=== PATIENT | male | born 1990 | race American Indian/Alaskan Native ===

== ENCOUNTER 2020-04-20 13:09 | Emergency (ER) | payer MEDICAID ==
--- NOTE | 2020-04-20 14:07 | Emergency Department Report ---
ED General Adult HPI - General Chief complaint: Extremity Injury, Upper Stated complaint: ARM CHECKED P-LINE Time Seen by Provider: 04/20/20 13:59 Source: patient Mode of arrival: Ambulatory Limitations: No Limitations - History of Present Illness Initial comments: Patient is a 29-year-old male who presents emergency room for check of his right forearm fistula. He states he has a history of end-stage renal disease and is on dialysis. He states he last went to dialysis on Saturday04/18/20. He states that he has had a scab present to the forearm for a month. He states that it has been checked twice in [place] and he did not have any evidence of thrombosis or infection. He denies any drainage, fever, vomiting, diarrhea, arm pain, increasing swelling, redness, increased warmth. He states he has an appointment with a vascular surgeon on 04/22/2020. He states that the dialysis center wanted him to have the area evaluated prior to dialysis. He states he does have a history of hypertension and just took his medication right before he came in. - Related Data Previous Rx's Medication Instructions Recorded Last Taken Type Neomycin/Bacitracin/Polymyxinb 1 applicatio TP BID #14 oint...g. 04/20/20 Unknown Rx [Triple Antibiotic Ointment] Sulfamethoxazole/Trimethoprim 1 each PO BID 7 Days #14 tablet 04/20/20 Unknown Rx [Bactrim DS TAB] Allergies Allergy/AdvReac Type Severity Reaction Status Date / Time No Known Allergies Allergy Verified 01/08/15 03:29 ED Review of Systems ROS: Stated complaint: ARM CHECKED P-LINE Other details as noted in HPI Comment: All other systems reviewed and negative ED Past Medical Hx - Past Medical History Previous Medical History?: Yes Hx Hypertension: Yes Hx Renal Disease: Yes Hx HIV: Yes - Surgical History Past Surgical History?: No - Social History Smoking Status: Current Every Day Smoker - Medications Home Medications: Home Medications Medication Instructions Recorded Confirmed Last Taken Type Neomycin/Bacitracin/Polymyxinb 1 applicatio TP BID #14 oint...g. 04/20/20 Unknown Rx [Triple Antibiotic Ointment] Sulfamethoxazole/Trimethoprim 1 each PO BID 7 Days #14 tablet 04/20/20 Unknown Rx [Bactrim DS TAB] ED Physical Exam - General Limitations: No Limitations General appearance: alert, in no apparent distress - Head Head exam: Present: atraumatic, normocephalic - Eye Eye exam: Present: normal appearance - ENT ENT exam: Present: mucous membranes moist - Respiratory Respiratory exam: Absent: respiratory distress, accessory muscle use - Neurological Exam Neurological exam: Present: alert, oriented X3 - Psychiatric Psychiatric exam: Present: normal affect, normal mood - Skin Skin exam: Present: warm, dry, other (1 cm scab/abrasion present to the right forearm, he has an AV fistula in the lower right forearm near the wrist, there is good strong trill, his capillary refill is less than 2 seconds, sensation is intact, no erythema, no increased warmth, no drainage, no fluctuance) ED Course Vital Signs 04/20/20 04/20/20 13:21 14:21 Temperature 98.3 F Pulse Rate 100 H Respiratory 18 Rate Blood Pressure 189/121 Blood Pressure 179/98 [Right] O2 Sat by Pulse 97 Oximetry ED Medical Decision Making - Lab Data Vital Signs 04/20/20 04/20/20 13:21 14:21 Temperature 98.3 F Pulse Rate 100 H Respiratory 18 Rate Blood Pressure 189/121 Blood Pressure 179/98 [Right] O2 Sat by Pulse 97 Oximetry - Medical Decision Making Patient is a 29-year-old male who presents emergency room for check of his right forearm fistula. He states he has a history of end-stage renal disease and is on dialysis. He states he last went to dialysis on Saturday04/18/20. He states that he has had a scab present to the forearm for a month. He states that it has been checked twice in [place] and he did not have any evidence of thrombosis or infection. He denies any drainage, fever, vomiting, diarrhea, arm pain, increasing swelling, redness, increased warmth. He states he has an appointment with a vascular surgeon on 04/22/2020. He states that the dialysis center wanted him to have the area evaluated prior to dialysis. He states he does have a history of hypertension and just took his medication right before he came in. Initial vitals with elevated blood pressure which improved upon repeat. On exam:1 cm scab/abrasion present to the right forearm, he has an AV fistula in the lower right forearm near the wrist, there is good strong trill, his capillary refill is less than 2 seconds, sensation is intact, no erythema, no increased warmth, no drainage, no fluctuance. No signs of significant cellulitis or abscess. Patient is neurovascularly intact. Dr. Hernandez, ER attending evaluated patient and advised to give patient prescription for Bactrim and have patient follow-up with outpatient vascular surgeon. Patient given prescription for Bactrim and triple antibiotic ointment. Advised patient Please use medication as prescribed. Please keep your appointment with your vascular surgeon on 04/22/2020. Return to emergency room immediately for any new or worsening symptoms. Critical care attestation.: If time is entered above; I have spent that time in minutes in the direct care of this critically ill patient, excluding procedure time. ED Disposition Clinical Impression: Abrasion of right forearm Qualifiers: Encounter type: initial encounter Qualified Code(s): S50.811A - Abrasion of right forearm, initial encounter Disposition: TO HOME OR SELFCARE Is pt being admited?: No Does the pt Need Aspirin: No Condition: Stable Instructions: Wound Care, Adult Additional Instructions: Please use medication as prescribed. Please keep your appointment with your vascular surgeon on 04/22/2020. Return to emergency room immediately for any new or worsening symptoms. Prescriptions: Sulfamethoxazole/Trimethoprim [Bactrim DS TAB] 1 each PO BID 7 Days #14 tablet Neomycin/Bacitracin/Polymyxinb [Triple Antibiotic Ointment] 1 applicatio TP BID #14 oint...g. Referrals: PRIMARY CARE, [Primary Care Provider] - 2-3 Days Time of Disposition: 14:07 Print Language: NICARAGUAN
[2020-04-20 14:21] VITALS: BP 179/98
== END 2020-04-20 14:21 | disposition home or self-care (01) ==
LOC: ED 13:09
DX: S50.811A Abrasion of right forearm, initial encounter (principal); I10 Essential (primary) hypertension; Z21 Asymptomatic human immunodeficiency virus [HIV] infection status; F17.200 Nicotine dependence, unspecified, uncomplicated; Z79.899 Other long term (current) drug therapy; X58.XXXA Exposure to other specified factors, initial encounter; Y93.89 Activity, other specified; Y92.89 Other specified places as the place of occurrence of the external cause; Y99.8 Other external cause status
CPT/HCPCS: 99282

== ENCOUNTER 2020-05-13 12:15 | Emergency (ER) | payer MEDICARE ==
[2020-05-13 12:34] VITALS: BP 147/94
--- NOTE | 2020-05-13 13:01 | Emergency Department Report ---
ED Rash HPI - HPI Chief Complaint: Skin Rash Stated Complaint: RASH ON BACK Time Seen by Provider: 05/13/20 12:33 Duration: 2 Days Location: Back, Abdomen Rash Symptoms: Yes Blistering, No Itching, No Facial Swelling, No Tongue/Oral Swelling, No Breathing Difficulties, No Choking Sensation, No Wheezing/Dyspnea, No Peeling, No Fever, No Lightheaded, No Malaise, No Myalgias Severity: moderate Other History: Chief complaint: "I have a rash. I think it is shingles". HPI: This is a 29-year-old male with history of HIV not on ART and hypertension who presents with rash of his lower abdomen and back. Mother thinks that the rash appears like chickenpox. Consequently patient is concerned for shingles. The pain is very intense. Patient has vesicular rash lower back wraps around flank to the right lower quadrant of the abdomen. Patient recently moved back to the [place] area. He is attempting to obtain outpatient medical care for HIV. He denies fever. No chest pain. No shortness of breath. Denies body aches. ED Review of Systems ROS: Stated complaint: RASH ON BACK Other details as noted in HPI Comment: All other systems reviewed and negative Constitutional: denies: fever, malaise Respiratory: denies: cough, shortness of breath Gastrointestinal: denies: abdominal pain, nausea, vomiting Skin: rash, lesions ED Past Medical Hx - Past Medical History Previous Medical History?: Yes Hx Hypertension: Yes Hx Renal Disease: Yes Hx HIV: Yes - Social History Smoking Status: Current Every Day Smoker - Medications Home Medications: Home Medications Medication Instructions Recorded Confirmed Last Taken Type Neomycin/Bacitracin/Polymyxinb 1 applicatio TP BID #14 oint...g. 04/20/20 Unknown Rx [Triple Antibiotic Ointment] Sulfamethoxazole/Trimethoprim 1 each PO BID 7 Days #14 tablet 04/20/20 Unknown Rx [Bactrim DS TAB] Gabapentin 300 mg PO Q8HR #21 capsule 05/13/20 Unknown Rx HYDROcodone/APAP 5-325 [[place] 1 each PO Q4HR PRN #15 tablet 05/13/20 Unknown Rx 5/325] Prednisone [predniSONE 10 mg 10 mg PO .TAPER #1 tab.ds.pk 05/13/20 Unknown Rx (6-Day Pack, 21 Tabs)] Valacyclovir HCl [Valtrex] 1,000 mg PO TID #21 tablet 05/13/20 Unknown Rx Rash Exam - Exam General: Vital signs noted. No distress. Alert and acting appropriately. HEENT: No Periorbital Edema, No Conjuctival Injection, No Chemosis, No Perioral Edema, No Tongue Edema, No Uvular Edema, No Compromised Airway, No Drooling Lungs: Yes Good Air Exchange (Normal Breath Sounds), No Wheezes, No Ronchi, No Stridor, No Cough, No Labored Respirations, No Retractions, No Use of Accessory Muscles, No Other Abnormal Lung Sounds Heart: Yes Regular, No Murmur Skin: No Urticarial Rash, No Maculopapular Rash, No Morbilliform rash, No Excoriations, No Weeping, No Tenderness, No Erythema, No Edema, No Encrustations, No Other (Vesicular rash in dermatomal distribution right lower quadrant wrapping around to right lower back flank) Other: Positive: Abdomen Normal, Neurologic Normal, Musculoskeletal Normal ED Course Vital Signs 05/13/20 12:33 Temperature 99.4 F Pulse Rate 99 H Respiratory 16 Rate Blood Pressure 147/94 [Right] O2 Sat by Pulse 95 Oximetry ED Medical Decision Making - Medical Decision Making Shingles herpes zoster prescribed Valtrex prednisone Neurontin [place] Referred to infectious disease physician and IDP clinic Critical care attestation.: If time is entered above; I have spent that time in minutes in the direct care of this critically ill patient, excluding procedure time. ED Disposition Clinical Impression: Shingles Disposition: DC-01 TO HOME OR SELFCARE Is pt being admited?: No Does the pt Need Aspirin: No Condition: Stable Instructions: Promise, [id number] Additional Instructions: [facility] [address] [place] [address] Prescriptions: Gabapentin 300 mg PO Q8HR #21 capsule HYDROcodone/APAP 5-325 [[place] 5/325] 1 each PO Q4HR PRN #15 tablet PRN Reason: Pain Prednisone [predniSONE 10 mg (6-Day Pack, 21 Tabs)] 10 mg PO .TAPER #1 tab.ds.pk Valacyclovir HCl [Valtrex] 1,000 mg PO TID #21 tablet Referrals: NOA CHRISTIAN MD [Staff Physician] - 3-5 Days
== END 2020-05-13 13:55 | disposition home or self-care (01) ==
LOC: ED 12:15
DX: B02.9 Zoster without complications (principal); I10 Essential (primary) hypertension; F17.200 Nicotine dependence, unspecified, uncomplicated; Z21 Asymptomatic human immunodeficiency virus [HIV] infection status; Z79.899 Other long term (current) drug therapy
CPT/HCPCS: 99282

== ENCOUNTER 2020-10-07 02:54 | Observation (INO) | payer MEDICARE ==
[2020-10-07 03:31] LABS: Basophils % (Auto) 0.2 % (0.0-1.8); Eosinophils % (Auto) 0.3 % (0.0-4.3); Hematocrit 33.5 % (35.5-45.6); Lymphocytes % (Auto) 18.1 % (13.4-35.0); Mean Corpuscular HGB Conc 33 % (32-34); Mean Corpuscular Volume 102 fl (84-94); Monocytes # (Auto) 0.2 K/mm3 (0.0-0.8); Monocytes % (Auto) 3.8 % (0.0-7.3); Platelet Count 148 K/mm3 (140-440); Red Cell Distribution Width 19.4 % (13.2-15.2)
[2020-10-07 03:47] LABS: Albumin 4.9 g/dL (3.9-5)
[2020-10-07] MEDS ORDERED: KETOROLAC 30 MG/1 ML INJ IV ONE (04:34)
[2020-10-07] MEDS ORDERED: ONDANSETRON 4 MG/2 ML INJ IV ONE (04:34)
[2020-10-07] MEDS ORDERED: CALCIUM CHLORIDE 1,000 MG/10 ML SYRINGE IV ONE (04:56)
[2020-10-07] MEDS ORDERED: SODIUM POLYSTYRENE 15 GM/60 ML ORAL LIQD PO ONE (04:56)
[2020-10-07] MEDS ORDERED: SODIUM BICARB 8.4% 50 MEQ/50 ML SYRINGE IV ONE (04:56)
[2020-10-07] MEDS ORDERED: INSULIN REGULAR, HUMAN 100 UNITS/1 ML IV ONE (04:56)
[2020-10-07] MEDS: DEXTROSE 50% IN WATER (25GM) 50 ML SYRINGE IV ONE (05:06)
--- NOTE | 2020-10-07 05:09 | Emergency Department Report ---
ED N/V/D HPI - General Chief complaint: Nausea/Vomiting/Diarrhea Stated complaint: NAUSEA,VOMITING,HIGH BP Time Seen by Provider: 10/07/20 04:21 Source: patient Mode of arrival: Ambulatory Limitations: No Limitations - History of Present Illness Initial comments: Patient is a 29-year-old F [place] male with a past medical history of HIV and end-stage renal disease who is currently on dialysis and his last dialysis session was 2 days ago is presenting with nausea vomiting diarrhea. Patient has diffuse abdominal discomfort. Is been vomiting for the past day. He is unable to keep anything down. [place] pain is crampy in nature and is estimated at 8 out of 10 in severity. Denies any shortness of breath cough fevers chills at this time. States there is no blood in his stool or vomit. MD complaint: nausea, vomiting, diarrhea, abdominal pain - Related Data Previous Rx's Medication Instructions Recorded Last Taken Type Neomycin/Bacitracin/Polymyxinb 1 applicatio TP BID #14 oint...g. 04/20/20 Unknown Rx [Triple Antibiotic Ointment] Sulfamethoxazole/Trimethoprim 1 each PO BID 7 Days #14 tablet 04/20/20 Unknown Rx [Bactrim DS TAB] Gabapentin 300 mg PO Q8HR #21 capsule 05/13/20 Unknown Rx HYDROcodone/APAP 5-325 [[place] 1 each PO Q4HR PRN #15 tablet 05/13/20 Unknown Rx 5/325] Prednisone [predniSONE 10 mg 10 mg PO .TAPER #1 tab.ds.pk 05/13/20 Unknown Rx (6-Day Pack, 21 Tabs)] Valacyclovir HCl [Valtrex] 1,000 mg PO TID #21 tablet 05/13/20 Unknown Rx Allergies Allergy/AdvReac Type Severity Reaction Status Date / Time No Known Allergies Allergy Verified 01/08/15 03:29 ED Review of Systems ROS: Stated complaint: NAUSEA,VOMITING,HIGH BP Other details as noted in HPI Comment: All other systems reviewed and negative ED Past Medical Hx - Past Medical History Previous Medical History?: Yes Hx Hypertension: Yes Hx Renal Disease: Yes Hx HIV: Yes - Surgical History Past Surgical History?: Yes Additional Surgical History: R arm fistula - Social History Smoking Status: Current Every Day Smoker - Medications Home Medications: Home Medications Medication Instructions Recorded Confirmed Last Taken Type Neomycin/Bacitracin/Polymyxinb 1 applicatio TP BID #14 oint...g. 04/20/20 Unknown Rx [Triple Antibiotic Ointment] Sulfamethoxazole/Trimethoprim 1 each PO BID 7 Days #14 tablet 04/20/20 Unknown Rx [Bactrim DS TAB] Gabapentin 300 mg PO Q8HR #21 capsule 05/13/20 Unknown Rx HYDROcodone/APAP 5-325 [[place] 1 each PO Q4HR PRN #15 tablet 05/13/20 Unknown Rx 5/325] Prednisone [predniSONE 10 mg 10 mg PO .TAPER #1 tab.ds.pk 05/13/20 Unknown Rx (6-Day Pack, 21 Tabs)] Valacyclovir HCl [Valtrex] 1,000 mg PO TID #21 tablet 05/13/20 Unknown Rx ED Physical Exam - General Limitations: No Limitations General appearance: alert, other (Ill-appearing but nontoxic) - Head Head exam: Present: atraumatic, normocephalic - Eye Eye exam: Present: normal appearance, PERRL, EOMI - ENT ENT exam: Present: mucous membranes moist - Neck Neck exam: Present: normal inspection - Respiratory Respiratory exam: Present: normal lung sounds bilaterally. Absent: respiratory distress, wheezes, rales, rhonchi - Cardiovascular Cardiovascular Exam: Present: regular rate, normal rhythm, normal heart sounds. Absent: systolic murmur, diastolic murmur, rubs, gallop - GI/Abdominal GI/Abdominal exam: Present: soft, tenderness, normal bowel sounds. Absent: dist ended, guarding, rebound, rigid - Rectal Rectal exam: Present: deferred - Extremities Exam Extremities exam: Present: normal inspection - Back Exam Back exam: Present: normal inspection - Neurological Exam Neurological exam: Present: alert, oriented X3 - Psychiatric Psychiatric exam: Present: normal affect, normal mood - Skin Skin exam: Present: warm, dry, intact, normal color. Absent: rash ED Course Vital Signs 10/07/20 10/07/20 02:58 04:42 Temperature 98.1 F Pulse Rate 103 H 90 Respiratory 19 Rate Blood Pressure 197/139 Blood Pressure 204/137 [Left] O2 Sat by Pulse 100 Oximetry - Reevaluation(s) Reevaluation #1: 10/07/20 05:08 Patient is initial potassium was elevated. Repeated the potassium to ensure that it was not hemolyzed as there was no report. Second potassium was actually slightly higher and laboratory veterinarian states there is no hemolysis. EKG does show some hyperacute T waves. Patient given D50 10 of insulin sodium bicarb and calcium. Nephrology has been called at this time. Patient normally [facility] and [facility] has not been here before for dialysis. ED Medical Decision Making - Lab Data Result diagrams: 10/07/20 03:02 10/07/20 04:06 Lab Results 10/07/20 10/07/20 10/07/20 Range/Units 03:02 03:02 04:06 WBC 5.5 (4.5-11.0) K/mm3 RBC 3.30 L (3.65-5.03) M/mm3 Hgb 11.0 L (11.8-15.2) gm/dl Hct 33.5 L (35.5-45.6) % MCV 102 H (84-94) fl MCH 33 H (28-32) pg MCHC 33 (32-34) % RDW 19.4 H (13.2-15.2) % Plt Count 148 (140-440) K/mm3 Lymph % (Auto) 18.1 (13.4-35.0) % [place] % (Auto) 3.8 (0.0-7.3) % Eos % (Auto) 0.3 (0.0-4.3) % Baso % (Auto) 0.2 (0.0-1.8) % Lymph # (Auto) 1.0 L (1.2-5.4) K/mm3 [place] # (Auto) 0.2 (0.0-0.8) K/mm3 Eos # (Auto) 0.0 (0.0-0.4) K/mm3 Baso # (Auto) 0.0 (0.0-0.1) K/mm3 Seg Neutrophils % 77.6 H (40.0-70.0) % Seg Neutrophils # 4.2 (1.8-7.7) K/mm3 Sodium 139 (137-145) mmol/L Potassium 7.8 H* 8.0 H* (3.6-5.0) mmol/L Chloride 94.9 L (98-107) mmol/L Carbon Dioxide 22 (22-30) mmol/L Anion Gap 30 mmol/L BUN 73 H (9-20) mg/dL Creatinine 18.4 H (0.8-1.3) mg/dL Estimated GFR 4 ml/min BUN/Creatinine Ratio 4 % Glucose 75 (75-100) mg/dL Calcium 11.0 H (8.4-10.2) mg/dL Total Bilirubin 1.30 H (0.1-1.2) mg/dL AST 13 (5-40) units/L ALT 10 (7-56) units/L Alkaline Phosphatase 92 (35-129) units/L Total Protein 7.9 (6.3-8.2) g/dL Albumin 4.9 (3.9-5) g/dL Albumin/Globulin Ratio 1.6 % - EKG Data -: EKG Interpreted by Me - EKG Data 10/07/20 05:47 EKG shows a sinus rhythm rate of 80. [place] is leftward. Was a prolonged SC interval. 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 No peak T waves consistent with hyperkalemia. Time of interpretation is 0455 - Medical Decision Making Patient presented with nausea vomiting diarrhea and some diffuse abdominal discomfort. At the time of admission the official report for the CT of the abdomen pelvis did not resulted however per my interpretation the patient has some ascites. Patient abdomen feeling much improved after Pepcid Zofran and patient has had no further episodes of nausea vomiting. Nephrology Dr. Rosario has been consulted and is ordered dialysis. After the first dose of labetalol her blood pressure did not improve significantly with the. Patient started on a Cardene drip to get his blood pressure down to the level that he is able to receive dialysis. Patient admitted to the hospitalist service. Critical Care Time: Yes (30) Critical care attestation.: If time is entered above; I have spent that time in minutes in the direct care of this critically ill patient, excluding procedure time. ED Disposition Clinical Impression: End-stage renal disease needing dialysis, Hyperkalemia, Gastroenteritis Disposition: OP ADMIT IP TO THIS HOSP Is pt being admited?: Yes Does the pt Need Aspirin: No Condition: Stable Time of Disposition: 05:49
[2020-10-07] MEDS ORDERED: SODIUM CHLORIDE 0.9% 100 ML IV PRN (05:25)
--- NOTE | 2020-10-07 05:30 | Event Note ---
Date: 10/07/20 ESRD with hyperkalemia Presented with nausea and vomiting, no chest pain STAT orders placed for HD, ER to call HD nurse Medical management of hyperkalemia in the interim Discussed that bp is to be less than 180/90 to be placed on HD machine Mali Kyle MD
[2020-10-07] MEDS ORDERED: niCARdipine DRIP 40 MG/200 ML BAG IV ONE (05:41)
[2020-10-07] MEDS ORDERED: ALBUTEROL 2.5 MG/3 ML NEBU IH PRN (06:02)
[2020-10-07] MEDS ORDERED: ONDANSETRON 4 MG/2 ML INJ IV PRN (06:02)
[2020-10-07] MEDS ORDERED: ACETAMINOPHEN 325 MG TAB PO PRN (06:02)
[2020-10-07] MEDS ORDERED: HYDROcodone/ACETAMINOPHEN 5-325 MG TAB PO PRN (06:03)
--- NOTE | 2020-10-07 06:10 | History and Physical Report ---
History of Present Illness Date of examination: 10/07/20 Date of admission: 10/07/20 Chief complaint: Nausea vomiting diarrhea History of present illness: 29 years old male with history of end-stage renal disease on dialysis was brought to the emergency room with nausea vomiting diarrhea for last 2 to 3 days. Patient has diffuse abdominal discomfort. Is been vomiting for the past day. He is unable to keep anything down. Michael pain is crampy in nature and is estimated at 8 out of 10 in severity. Denies any shortness of breath cough fevers chills at this time. States there is no blood in his stool or vomit. In the emergency room patient is found to have potassium of 7.8 BUN of 73 creatinine 18.4 Past History Past Medical History: ESRD, hypertension Medications and Allergies Allergies Allergy/AdvReac Type Severity Reaction Status Date / Time No Known Allergies Allergy Verified 01/08/15 03:29 Home Medications Medication Instructions Recorded Confirmed Last Taken Type Neomycin/Bacitracin/Polymyxinb 1 applicatio TP BID #14 oint...g. 04/20/20 Unknown Rx [Triple Antibiotic Ointment] Sulfamethoxazole/Trimethoprim 1 each PO BID 7 Days #14 tablet 04/20/20 Unknown Rx [Bactrim DS TAB] Gabapentin 300 mg PO Q8HR #21 capsule 05/13/20 Unknown Rx HYDROcodone/APAP 5-325 [[place] 1 each PO Q4HR PRN #15 tablet 05/13/20 Unknown Rx 5/325] Prednisone [predniSONE 10 mg 10 mg PO .TAPER #1 tab.ds.pk 05/13/20 Unknown Rx (6-Day Pack, 21 Tabs)] Valacyclovir HCl [Valtrex] 1,000 mg PO TID #21 tablet 05/13/20 Unknown Rx Active Meds: Active Medications Acetaminophen (Acetaminophen 325 Mg Tab) 650 mg PO Q4H PRN PRN Reason: Pain MILD(1-3)/Fever >100.5/PATEL Hydrocodone Bitart/Acetaminophen (Hydrocodone/Acetaminophen 5-325 Mg Tab) 1 each PO Q4HR PRN PRN Reason: PAIN Albuterol (Albuterol 2.5 Mg/3 Ml Nebu) 2.5 mg IH Q4HRT PRN PRN Reason: Shortness Of Breath Famotidine (Famotidine 20 Mg/2 Ml Inj) 20 mg IV BID DAMIEN Gabapentin (Gabapentin 300 Mg Cap) 300 mg PO Q8HR DAMIEN Heparin Sodium (Porcine) (Heparin 5,000 Unit/1 Ml Vial) 5,000 unit SUB-Q Q8HR DAMIEN Hydralazine HCl (Hydralazine 20 Mg/1 Ml Inj) 10 mg IV Q6H PRN PRN Reason: Blood Pressure Sodium Chloride (Nacl 0.9%) 100 mls @ 999 mls/hr IV CITLALI PRN PRN Reason: Hypotension Nicardipine/Sodium Chloride (Cardene Drip 40 Mg/200 Ml) 40 mg in 200 mls @ 25 mls/hr IV ONCE ONE; Protocol Stop: 10/07/20 13:40 Miscellaneous Medication (Prednisone [Prednisone 10 Mg (6-Day Pack, 21 Tabs)]) 10 mg PO .TAPER DAMIEN Miscellaneous Medication (Valacyclovir Hcl [Valtrex]) 1,000 mg PO TID DAMIEN Neomycin/Polymyxin/Bacitracin (Neomy 3.5 Mg/Bacit 400 Units/Poly B 5000 Units Oint 15 Gm) 1 applic TP BID DAMIEN Ondansetron HCl (Ondansetron 4 Mg/2 Ml Inj) 4 mg IV Q8H PRN PRN Reason: Nausea And Vomiting Sodium Chloride (Sodium Chloride 0.9% 10 Ml Flush Syringe) 10 ml IV BID DAMIEN Sodium Chloride (Sodium Chloride 0.9% 10 Ml Flush Syringe) 10 ml IV PRN PRN PRN Reason: LINE FLUSH Trimethoprim/Sulfamethoxazole (Sulfamethoxazole/Trimethoprim 800/160mg Ds Tab) 1 each PO BID DAMIEN; Protocol Review of Systems Gastrointestinal: abdominal pain, nausea, vomiting, diarrhea Exam - Constitutional Vitals: Temp Pulse Resp BP Pulse Ox 98.1 F 90 19 197/139 100 10/07/20 02:58 10/07/20 04:42 10/07/20 02:58 10/07/20 04:42 10/07/20 02:58 General appearance: Present: no acute distress, well-nourished - EENT Eyes: Present: PERRL ENT: hearing intact, clear oral mucosa - Neck Neck: Present: supple, normal ROM - Respiratory Respiratory effort: normal Respiratory: bilateral: CTA - Cardiovascular Heart Sounds: Present: S1 & S2. Absent: rub, click - Extremities Extremities: pulses symmetrical, No edema Peripheral Pulses: within normal limits - Abdominal General gastrointestinal: Present: soft, non-tender, non-distended, normal bowel sounds Male genitourinary: Present: normal - Integumentary Integumentary: Present: clear, warm, dry - Musculoskeletal Musculoskeletal: gait normal, strength equal bilaterally - Psychiatric Psychiatric: appropriate mood/affect, intact judgment & insight - Neurologic Neurologic: CNII-XII intact, moves all extremities Results - Labs CBC & Chem 7: 10/07/20 03:02 10/07/20 04:06 Labs: Laboratory Last Values WBC 5.5 K/mm3 (4.5-11.0) 10/07/20 03:02 RBC 3.30 M/mm3 (3.65-5.03) L 10/07/20 03:02 Hgb 11.0 gm/dl (11.8-15.2) L 10/07/20 03:02 Hct 33.5 % (35.5-45.6) L 10/07/20 03:02 MCV 102 fl (84-94) H 10/07/20 03:02 MCH 33 pg (28-32) H 10/07/20 03:02 MCHC 33 % (32-34) 10/07/20 03:02 RDW 19.4 % (13.2-15.2) H 10/07/20 03:02 Plt Count 148 K/mm3 (140-440) 10/07/20 03:02 Lymph % (Auto) 18.1 % (13.4-35.0) 10/07/20 03:02 [place] % (Auto) 3.8 % (0.0-7.3) 10/07/20 03:02 Eos % (Auto) 0.3 % (0.0-4.3) 10/07/20 03:02 Baso % (Auto) 0.2 % (0.0-1.8) 10/07/20 03:02 Lymph # (Auto) 1.0 K/mm3 (1.2-5.4) L 10/07/20 03:02 [place] # (Auto) 0.2 K/mm3 (0.0-0.8) 10/07/20 03:02 Eos # (Auto) 0.0 K/mm3 (0.0-0.4) 10/07/20 03:02 Baso # (Auto) 0.0 K/mm3 (0.0-0.1) 10/07/20 03:02 Seg Neutrophils % 77.6 % (40.0-70.0) H 10/07/20 03:02 Seg Neutrophils # 4.2 K/mm3 (1.8-7.7) 10/07/20 03:02 Sodium 139 mmol/L (137-145) 10/07/20 03:02 Potassium 8.0 mmol/L (3.6-5.0) H* 10/07/20 04:06 Chloride 94.9 mmol/L (98-107) L 10/07/20 03:02 Carbon Dioxide 22 mmol/L (22-30) 10/07/20 03:02 Anion Gap 30 mmol/L 10/07/20 03:02 BUN 73 mg/dL (9-20) H 10/07/20 03:02 Creatinine 18.4 mg/dL (0.8-1.3) H 10/07/20 03:02 Estimated GFR 4 ml/min 10/07/20 03:02 BUN/Creatinine Ratio 4 % 10/07/20 03:02 Glucose 75 mg/dL (75-100) 10/07/20 03:02 Calcium 11.0 mg/dL (8.4-10.2) H 10/07/20 03:02 Total Bilirubin 1.30 mg/dL (0.1-1.2) H 10/07/20 03:02 AST 13 units/L (5-40) 10/07/20 03:02 ALT 10 units/L (7-56) 10/07/20 03:02 Alkaline Phosphatase 92 units/L (35-129) 10/07/20 03:02 Total Protein 7.9 g/dL (6.3-8.2) 10/07/20 03:02 Albumin 4.9 g/dL (3.9-5) 10/07/20 03:02 Albumin/Globulin Ratio 1.6 % 10/07/20 03:02 - Imaging and Cardiology CT scan - abdomen: report reviewed Assessment and Plan VTE prophylaxis?: Chemical Plan of care discussed with patient/family: Yes - Patient Problems (1) End-stage renal disease needing dialysis Status: Acute Plan to address problem: Admit the patient to the IMCU. Patient is going for emergent dialysis. Nephrology consulted. Repeat CBC BMP in the morning (2) Hyperkalemia Status: Acute Plan to address problem: Patient already get 10 units of insulin, 1 ampoule of D50 and calcium chloride 1 g IV x1 dose. Will consult nephrology and patient is going for emergent hemodialysis (3) Gastroenteritis Status: Acute Plan to address problem: We will put the patient on Pepcid 20 mg IV every 12 hours and Zofran four million IV every 6 hours As needed. We will recheck CBC BMP in the morning (4) Hypertension Status: Acute Plan to address problem: Patient is on nicardipine drip for high blood pressure. He also continue labetalol 10 mg IV every 6 hours as needed. We will continue the home medication (5) DVT prophylaxis Status: Acute Plan to address problem: Heparin 5000 units subcu every 12 hours for the DVT prophylaxis. Pepcid 20 mg IV every 12 hours for GI prophylaxis. Patient is a full code
[2020-10-07] MEDS ORDERED: NON-FORMULARY EACH (Prednisone [Prednisone 10 Mg (6-Day Pack, 21 Tabs)] 10 MG Tab.Ds.Pk) PO SCH (06:15)
[2020-10-07] MEDS ORDERED: NON-FORMULARY EACH (Valacyclovir Hcl [Valtrex] 1,000 MG Tablet) PO SCH (08:00)
[2020-10-07] MEDS ORDERED: valACYclovir 500 MG TAB PO SCH (10:00)
[2020-10-07] MEDS ORDERED: FAMOTIDINE 20 MG/2 ML INJ IV SCH (10:00)
[2020-10-07] MEDS ORDERED: SULFAMETHOXAZOLE/TRIMETHOPRIM 800/160MG DS TAB PO SCH (10:00)
[2020-10-07] MEDS: FAMOTIDINE 20 MG/2 ML INJ IV SCH (10:06)
[2020-10-07] MEDS: NEOMY 3.5 MG/BACIT 400 UNITS/POLY B 5000 UNITS OINT 15 GM TP SCH ×2 (10:25→21:38)
[2020-10-07 10:42] LABS: Hepatitis B Surface Antigen Non-Reactive (Negative); Hepatitis C Virus Antibody Non-Reactive (NonReactive)
--- NOTE | 2020-10-07 13:33 | Consultation ---
History of Present Illness - Reason for Consult Consult date: 10/07/20 end stage renal disease, hyperkalemia Requesting physician: HLAI BERG - History of Present Illness Patient is a 29-year-old F [place]ian male with a past medical history of HIV and end-stage renal disease who is currently on dialysis and his last dialysis session was 2 days ago is presenting with nausea vomiting diarrhea. Patient has diffuse abdominal discomfort. Is been vomiting for the past day. He is unable to keep anything down. Abdominal pain is crampy in nature and is estimated at 8 out of 10 in severity. Denies any shortness of breath cough fevers chills at this time. States there is no blood in his stool or vomit. Serum potassium was found to be elevated at 7.8 and therefore this urgent consultation. Patient does admit to eating some high potassium foods. He undergoes dialysis at the [facility] on [address] [place]. 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 Patient states that he has not missed any treatments recently. He has just completed his dialysis treatment. Feels much better at this time. Past History Past Medical History: ESRD, hypertension, other (HIV disease) Past Surgical History: Other (History of creation of AV fistula) Social history: no significant social history Family history: no significant family history Medications and Allergies Allergies Allergy/AdvReac Type Severity Reaction Status Date / Time No Known Allergies Allergy Verified 01/08/15 03:29 Home Medications Medication Instructions Recorded Confirmed Last Taken Type Neomycin/Bacitracin/Polymyxinb 1 applicatio TP BID #14 oint...g. 04/20/20 Unknown Rx [Triple Antibiotic Ointment] Sulfamethoxazole/Trimethoprim 1 each PO BID 7 Days #14 tablet 04/20/20 Unknown Rx [Bactrim DS TAB] Gabapentin 300 mg PO Q8HR #21 capsule 05/13/20 Unknown Rx HYDROcodone/APAP 5-325 [[place] 1 each PO Q4HR PRN #15 tablet 05/13/20 Unknown Rx 5/325] Prednisone [predniSONE 10 mg 10 mg PO .TAPER #1 tab.ds.pk 05/13/20 Unknown Rx (6-Day Pack, 21 Tabs)] Valacyclovir HCl [Valtrex] 1,000 mg PO TID #21 tablet 05/13/20 Unknown Rx Active Meds: Active Medications Acetaminophen (Acetaminophen 325 Mg Tab) 650 mg PO Q4H PRN PRN Reason: Pain MILD(1-3)/Fever >100.5/PATEL Hydrocodone Bitart/Acetaminophen (Hydrocodone/Acetaminophen 5-325 Mg Tab) 1 each PO Q4HR PRN PRN Reason: Pain, Moderate (4-6) Albuterol (Albuterol 2.5 Mg/3 Ml Nebu) 2.5 mg IH Q4HRT PRN PRN Reason: Shortness Of Breath Famotidine (Famotidine 20 Mg/2 Ml Inj) 20 mg IV DAILY [facility] Last Admin: 10/07/20 10:06 Dose: 20 mg Documented by: Gabapentin (Gabapentin 300 Mg Cap) 300 mg PO Q8HR [facility] Heparin Sodium (Porcine) (Heparin 5,000 Unit/1 Ml Vial) 5,000 unit SUB-Q Q8HR DAMIEN Hydralazine HCl (Hydralazine 20 Mg/1 Ml Inj) 10 mg IV Q6H PRN PRN Reason: SBP >/=160; DBP >/=100 Sodium Chloride (Nacl 0.9%) 100 mls @ 999 mls/hr IV CITLALI PRN PRN Reason: Hypotension Nicardipine/Sodium Chloride (Cardene Drip 40 Mg/200 Ml) 40 mg in 200 mls @ 25 mls/hr IV ONCE ONE; Protocol Stop: 10/07/20 13:40 Last Admin: 10/07/20 06:09 Dose: 5 mg/hr, 25 mls/hr Documented by: Neomycin/Polymyxin/Bacitracin (Neomy 3.5 Mg/Bacit 400 Units/Poly B 5000 Units Oint 15 Gm) 1 applic TP BID [facility] Ondansetron HCl (Ondansetron 4 Mg/2 Ml Inj) 4 mg IV Q8H PRN PRN Reason: Nausea And Vomiting Sodium Chloride (Sodium Chloride 0.9% 10 Ml Flush Syringe) 10 ml IV BID [facility] Last Admin: 10/07/20 10:06 Dose: 10 ml Documented by: Sodium Chloride (Sodium Chloride 0.9% 10 Ml Flush Syringe) 10 ml IV PRN PRN PRN Reason: LINE FLUSH Review of Systems All systems: negative (Except as noted above) Exam - Vital Signs Vital signs: Vital Signs Temp Pulse Resp BP Pulse Ox 98.1 F 103 H 19 204/137 100 10/07/20 02:58 10/07/20 02:58 10/07/20 02:58 10/07/20 02:58 10/07/20 02:58 - General Appearance General appearance: well-developed, well-nourished, appears stated age EENT: PERRL, mucous membranes moist Neck: Present: neck supple, trachea midline. Absent: JVD/HJR, Masses Respiratory: Clear to Ascultation Heart: regular, normal heart rate Gastrointestinal: Present: normal, normoactive bowel sounds Integumentary: no rash, other (No edema. AV fistula right forearm. Good bruit and thrill.) Results - Lab Results 10/07/20 03:02 10/07/20 04:06 Most recent lab results Calcium 11.0 mg/dL (8.4-10.2) H 10/07/20 03:02 Assessment and Plan Impression * End-stage renal disease on maintenance hemodialysis. * Severe hyperkalemia * Hypertension * HIV disease * Anemia Recommendations * Patient completed his dialysis approximately 30 to 45 minutes ago. He feels much better at this time * Shall recheck a potassium. If still elevated would manage him medically * Recheck his chemistries again tomorrow. He will most likely need additional dialysis treatment tomorrow * Adjust diet and meds for ESRD state * Avoid nephrotoxins * Monitor fluid status and electrolytes closely * Patient advised regarding dietary potassium restriction * No IV, BP or venipuncture in his access arm * Thank you very much for the consultation. Shall follow along with you
[2020-10-07] MEDS: GABAPENTIN 300 MG CAP PO SCH ×2 (13:44→21:31)
[2020-10-07] MEDS: HEPARIN 5,000 UNIT/1 ML VIAL SUB-Q SCH ×2 (14:43→21:32)
--- NOTE | 2020-10-07 15:25 | Event Note ---
Date: 10/07/20 Patient seen and examined, completing dialysis. Patient states that he is feeling better. Continue dialysis per nephrology recommendations, anticipate possible dialysis tomorrow, recheck potassium. Anticipate discharge in the next 48 hours.
[2020-10-07] MEDS: hydrALAZINE 20 MG/1 ML INJ IV PRN (21:53)
[2020-10-08] MEDS: hydrALAZINE 20 MG/1 ML INJ IV PRN ×2 (04:10→13:00)
[2020-10-08] MEDS: GABAPENTIN 300 MG CAP PO SCH ×3 (05:26→21:10)
[2020-10-08] MEDS: HEPARIN 5,000 UNIT/1 ML VIAL SUB-Q SCH ×3 (05:26→21:10)
[2020-10-08 08:20] LABS: Basophils % (Auto) 0.6 % (0.0-1.8); Eosinophils # (Auto) 0.1 K/mm3 (0.0-0.4); Eosinophils % (Auto) 2.8 % (0.0-4.3); Hematocrit 33.7 % (35.5-45.6); Hemoglobin 11.3 gm/dl (11.8-15.2); Lymphocytes # (Auto) 1.2 K/mm3 (1.2-5.4); Lymphocytes % (Auto) 26.8 % (13.4-35.0); Mean Corpuscular HGB Conc 33 % (32-34); Mean Corpuscular Volume 101 fl (84-94); Monocytes # (Auto) 0.2 K/mm3 (0.0-0.8); Monocytes % (Auto) 3.9 % (0.0-7.3); Platelet Count 150 K/mm3 (140-440); Red Blood Count 3.35 M/mm3 (3.65-5.03); Red Cell Distribution Width 19.4 % (13.2-15.2)
[2020-10-08 08:37] LABS: Calcium 9.9 mg/dL (8.4-10.2)
--- NOTE | 2020-10-08 09:48 | Electrocardiograph Report ---
[facility] Test Date: 2020-10-07 Test Time: 04:51:29 Pat Name: TEOFILO CISNEROS Department: Room: A267 1 Gender: M Acting Instructor: JAVY : 1990 Requested By: HALI BERG Order Number: [id number] Reading MD: Sebastien Bowman Measurements Intervals [place] Rate: 80 P: 50 NV: 249 QRS: -70 QRSD: 151 T: 72 QT: 467 QTc: 540 Interpretive Statements Sinus rhythm Prolonged NV interval Left atrial enlargement RBBB and LAFB Abnrm T, consider ischemia, anterolateral lds No previous ECG available for comparison Electronically Signed On 10-08-2020 9:47:48 EDT by Sebastien Bowman
[2020-10-08] MEDS ORDERED: NON-FORMULARY EACH (Dolutegravir/Rilpivirine [Juluca 50-25 Mg Tablet] 1 EACH Tablet) PO SCH (10:00)
[2020-10-08] MEDS ORDERED: NON-FORMULARY EACH (Nifedipine Er 60 MG) PO SCH (10:00)
[2020-10-08] MEDS ORDERED: NIFEdipine XL 60 MG TAB PO SCH ×2 (10:00→22:00)
--- NOTE | 2020-10-08 11:29 | Progress Note ---
Assessment and Plan Impression * End-stage renal disease on maintenance hemodialysis. * Severe hyperkalemia * Hypertension * HIV disease * Anemia Recommendations * Patient had uneventful hemodialysis yesterday. Hyperkalemia was corrected * Serum potassium has gone up to 6.2 again this morning. Patient getting additional dialysis treatment today. * Adjust diet and meds for ESRD state * Avoid nephrotoxins * Monitor fluid status and electrolytes closely * Patient advised regarding dietary potassium restriction * No IV, BP or venipuncture in his access arm * Patient did have prolonged bleeding from his AV fistula after dialysis yesterday. He will also need his access to be evaluated. He does not recall the name of his vascular surgeon Subjective Date of service: 10/08/20 Interval history: Patient feels better this morning. Denies any shortness of breath. Nausea and vomiting is also better. Dialysis being initiated Objective - Vital Signs Vital signs: Vital Signs - 12hr 10/07/20 10/08/20 10/08/20 23:38 00:00 00:25 Temperature 99.2 F Pulse Rate 94 H 96 H Pulse Rate [ 94 H From Monitor] Respiratory 29 H Rate Blood Pressure 163/114 167/115 O2 Sat by Pulse 91 Oximetry 10/08/20 10/08/20 10/08/20 01:00 02:00 03:00 Temperature Pulse Rate 90 83 84 Pulse Rate [ From Monitor] Respiratory 34 H 30 H 29 H Rate Blood Pressure 157/107 157/107 147/99 O2 Sat by Pulse 93 96 92 Oximetry 10/08/20 10/08/20 10/08/20 04:00 04:10 04:20 Temperature 99 F Pulse Rate 92 H 86 91 H Pulse Rate [ 92 H From Monitor] Respiratory 18 Rate Blood Pressure 161/112 161/112 O2 Sat by Pulse 90 Oximetry 10/08/20 10/08/20 10/08/20 05:00 06:00 07:00 Temperature Pulse Rate 94 H 96 H 96 H Pulse Rate [ From Monitor] Respiratory 29 H 30 H 32 H Rate Blood Pressure 151/102 157/108 171/111 O2 Sat by Pulse 94 94 100 Oximetry 10/08/20 10/08/20 10/08/20 07:28 07:59 08:00 Temperature 98 F Pulse Rate 103 H 97 H 96 H Pulse Rate [ 97 H From Monitor] Respiratory 13 Rate Blood Pressure 174/112 176/122 O2 Sat by Pulse 96 Oximetry 10/08/20 10/08/20 10/08/20 08:05 09:00 10:00 Temperature Pulse Rate 93 H 94 H Pulse Rate [ From Monitor] Respiratory 25 H 21 Rate Blood Pressure 158/113 163/113 O2 Sat by Pulse 97 96 94 Oximetry - General Appearance General appearance: well-developed, well-nourished, appears stated age EENT: PERRL, mucous membranes moist Neck: no JVD, no thyromegaly, no carotid bruit, supple Respiratory: Present: Clear to Ascultation Cardiology: regular, normal heart rate, S1S2, no murmurs Gastrointestinal: normal, normoactive bowel sounds Integumentary: no rash, other (No edema. AV fistula cannulated) - Lab 10/08/20 07:51 10/08/20 07:51 Most recent lab results Calcium 9.9 mg/dL (8.4-10.2) 10/08/20 07:51 Medications & Allergies - Medications Allergies/Adverse Reactions: Allergies No Known Allergies Allergy (Verified 10/08/20 07:57) Home Medications: Home Medications Medication Instructions Recorded Confirmed Last Taken Type Dolutegravir/Rilpivirine [[place] 1 tab PO DAILY 10/07/20 10/07/20 Unknown History 50-25 mg Tablet] Nifedipine ER 60 mg DAILY 10/07/20 10/07/20 Unknown History labetaloL [Labetalol 200mg TAB] 200 mg PO BID 10/07/20 10/07/20 Unknown History Active Medications: Generic Name Dose Route Start Last Admin Trade Name Freq PRN Reason Stop Dose Admin Acetaminophen 650 mg 10/07/20 06:02 Acetaminophen 325 Mg Tab PO Q4H PRN Pain MILD(1-3)/Fever >100.5/PATEL Hydrocodone Bitart/Acetaminophen 1 each 10/07/20 06:03 Hydrocodone/Acetaminophen 5-325 Mg Tab PO Q4HR PRN Pain, Moderate (4-6) Albuterol 2.5 mg 10/07/20 06:02 Albuterol 2.5 Mg/3 Ml Nebu IH Q4HRT PRN Shortness Of Breath Famotidine 20 mg 10/07/20 10:00 10/07/20 10:06 Famotidine 20 Mg/2 Ml Inj IV 20 mg DAILY DAMIEN Administration Gabapentin 300 mg 10/07/20 14:00 10/08/20 05:26 Gabapentin 300 Mg Cap PO 300 mg Q8HR DAMIEN Administration Heparin Sodium (Porcine) 5,000 unit 10/07/20 14:00 10/08/20 05:26 Heparin 5,000 Unit/1 Ml Vial SUB-Q 5,000 unit Q8HR DAMIEN Administration Hydralazine HCl 10 mg 10/07/20 06:04 10/08/20 04:10 Hydralazine 20 Mg/1 Ml Inj IV 10 mg Q6H PRN Administration SBP >/=160; DBP >/=100 Sodium Chloride 100 mls @ 999 mls/hr 10/07/20 05:25 Nacl 0.9% IV CITLALI PRN Hypotension Labetalol HCl 20 mg 10/07/20 18:00 10/08/20 07:28 Labetalol 20 Mg/4 Ml Inj IV 20 mg Q4HR PRN Administration Blood Pressure Labetalol HCl 200 mg 10/07/20 22:00 10/07/20 21:32 Labetalol 200 Mg Tab PO 200 mg BID DAMIEN Administration Miscellaneous Medication 1 each 10/08/20 10:00 Dolutegravir/Rilpivirine [[place] 50-25 Mg Tablet] PO DAILY DAMIEN Neomycin/Polymyxin/Bacitracin 1 applic 10/07/20 10:00 10/07/20 21:38 Neomy 3.5 Mg/Bacit 400 Units/Poly B 5000 Units Oint 15 Gm TP Not Given BID [facility] Nifedipine 60 mg 10/08/20 10:00 Nifedipine Xl 60 Mg Tab PO QDAY DAMIEN Ondansetron HCl 4 mg 10/07/20 06:02 Ondansetron 4 Mg/2 Ml Inj IV Q8H PRN Nausea And Vomiting Sodium Chloride 10 ml 10/07/20 10:00 10/07/20 21:38 Sodium Chloride 0.9% 10 Ml Flush Syringe IV 10 ml BID DAMIEN Administration Sodium Chloride 10 ml 10/07/20 06:02 Sodium Chloride 0.9% 10 Ml Flush Syringe IV PRN PRN LINE FLUSH
--- NOTE | 2020-10-08 13:26 | Progress Note ---
Assessment and Plan Assessment and plan: 29-year-old -Swedish male with past medical history of end-stage renal disease, HIV, hypertension who presents with hyperkalemia - Patient Problems End-stage renal disease needing dialysis Status: Acute Plan to address problem: Nephrology consulted Nephrology managing hemodialysis Hyperkalemia Status: Acute Plan to address problem: Patient already get 10 units of insulin, 1 ampoule of D50 and calcium chloride 1 g IV x1 dose. . Resolved hyperkalemia with hemodialysis Gastroenteritis Status: Acute Plan to address problem: Pepcid 20 mg twice daily Hypertension Status: Acute Plan to address problem: Continue labetalol 200 mg twice daily Continue nifedipine, increase 60 mg twice daily HIV infection - continue HIV medication DVT prophylaxis Status: Acute Plan to address problem: Heparin 5000 units subcu every 12 hours for the DVT prophylaxis. Pepcid 20 mg IV every 12 hours for GI prophylaxis. Disposition: Continue treatment for hypertension, hyperkalemia, and end-stage renal disease. History Interval history: 10/08/20 pt seen in dialysis, K+ is increased, BP increased, felt nauseated, didn't take medication for bp Hospitalist Physical - Physical exam Narrative exam: General appearance: no acute distress, well-nourished EENT: PERRL, EOM intact, hearing intact, clear oral mucosa Neck: Present: supple, normal ROM Respiratory: bilateral CTA, negative: rales, rhonchi, wheezing Cardiovascular: Regular rate/rhythm, Normal S1 & S2. No gallop, rub Extremities: A/V fistula in left arm, no ischemia, No edema, normal temperature, normal color, Full ROM Abdominal: soft, no tenderness, non-distended, normal bowel sounds Integumentary: Present: clear, warm, dry no wounds, no erythema noted Psychiatric: appropriate mood/affect, intact judgment & insight Neurologic: CNII-XII intact, moves all extremities, no sensory or motor abnormalities - Constitutional Vitals: Temp Pulse Resp BP Pulse Ox 97.9 F 102 H 18 186/120 94 10/08/20 10:30 10/08/20 12:30 10/08/20 10:30 10/08/20 12:30 10/08/20 10:00 Results - Labs CBC & Chem 7: 10/08/20 07:51 10/08/20 07:51 Labs: Laboratory Last Values WBC 4.4 K/mm3 (4.5-11.0) L 10/08/20 07:51 RBC 3.35 M/mm3 (3.65-5.03) L 10/08/20 07:51 Hgb 11.3 gm/dl (11.8-15.2) L 10/08/20 07:51 Hct 33.7 % (35.5-45.6) L 10/08/20 07:51 MCV 101 fl (84-94) H 10/08/20 07:51 MCH 34 pg (28-32) H 10/08/20 07:51 MCHC 33 % (32-34) 10/08/20 07:51 RDW 19.4 % (13.2-15.2) H 10/08/20 07:51 Plt Count 150 K/mm3 (140-440) 10/08/20 07:51 Lymph % (Auto) 26.8 % (13.4-35.0) 10/08/20 07:51 [place] % (Auto) 3.9 % (0.0-7.3) 10/08/20 07:51 Eos % (Auto) 2.8 % (0.0-4.3) 10/08/20 07:51 Baso % (Auto) 0.6 % (0.0-1.8) 10/08/20 07:51 Lymph # (Auto) 1.2 K/mm3 (1.2-5.4) 10/08/20 07:51 [place] # (Auto) 0.2 K/mm3 (0.0-0.8) 10/08/20 07:51 Eos # (Auto) 0.1 K/mm3 (0.0-0.4) 10/08/20 07:51 Baso # (Auto) 0.0 K/mm3 (0.0-0.1) 10/08/20 07:51 Seg Neutrophils % 65.9 % (40.0-70.0) 10/08/20 07:51 Seg Neutrophils # 2.9 K/mm3 (1.8-7.7) 10/08/20 07:51 Sodium 139 mmol/L (137-145) 10/08/20 07:51 Potassium 6.2 mmol/L (3.6-5.0) H* D 10/08/20 07:51 Chloride 96.7 mmol/L (98-107) L 10/08/20 07:51 Carbon Dioxide 24 mmol/L (22-30) 10/08/20 07:51 Anion Gap 25 mmol/L 10/08/20 07:51 BUN 48 mg/dL (9-20) H 10/08/20 07:51 Creatinine 13.0 mg/dL (0.8-1.3) H 10/08/20 07:51 Estimated GFR 6 ml/min 10/08/20 07:51 BUN/Creatinine Ratio 4 % 10/08/20 07:51 Glucose 94 mg/dL (75-100) 10/08/20 07:51 Calcium 9.9 mg/dL (8.4-10.2) 10/08/20 07:51 Total Bilirubin 1.30 mg/dL (0.1-1.2) H 10/07/20 03:02 AST 13 units/L (5-40) 10/07/20 03:02 ALT 10 units/L (7-56) 10/07/20 03:02 Alkaline Phosphatase 92 units/L (35-129) 10/07/20 03:02 Total Protein 7.9 g/dL (6.3-8.2) 10/07/20 03:02 Albumin 4.9 g/dL (3.9-5) 10/07/20 03:02 Albumin/Globulin Ratio 1.6 % 10/07/20 03:02 Hepatitis A IgM Ab Non-reactive (NonReactive) 10/07/20 08:30 Hep Bs Antigen Non-reactive (Negative) 10/07/20 08:30 Hep B Core IgM Ab Non-reactive (NonReactive) 10/07/20 08:30 Hepatitis C Antibody Non-reactive (NonReactive) 10/07/20 08:30 Active Medications - Current Medications Current Medications: Generic Name Dose Route Start Last Admin Trade Name Freq PRN Reason Stop Dose Admin Acetaminophen 650 mg 10/07/20 06:02 Acetaminophen 325 Mg Tab PO Q4H PRN Pain MILD(1-3)/Fever >100.5/PATEL Hydrocodone Bitart/Acetaminophen 1 each 10/07/20 06:03 Hydrocodone/Acetaminophen 5-325 Mg Tab PO Q4HR PRN Pain, Moderate (4-6) Albuterol 2.5 mg 10/07/20 06:02 Albuterol 2.5 Mg/3 Ml Nebu IH Q4HRT PRN Shortness Of Breath Famotidine 20 mg 10/07/20 10:00 10/07/20 10:06 Famotidine 20 Mg/2 Ml Inj IV 20 mg DAILY DAMIEN Administration Gabapentin 300 mg 10/07/20 14:00 10/08/20 05:26 Gabapentin 300 Mg Cap PO 300 mg Q8HR DAMIEN Administration Heparin Sodium (Porcine) 5,000 unit 10/07/20 14:00 10/08/20 05:26 Heparin 5,000 Unit/1 Ml Vial SUB-Q 5,000 unit Q8HR DAMIEN Administration Hydralazine HCl 10 mg 10/07/20 06:04 10/08/20 04:10 Hydralazine 20 Mg/1 Ml Inj IV 10 mg Q6H PRN Administration SBP >/=160; DBP >/=100 Sodium Chloride 100 mls @ 999 mls/hr 10/07/20 05:25 Nacl 0.9% IV CITLALI PRN Hypotension Labetalol HCl 20 mg 10/07/20 18:00 10/08/20 07:28 Labetalol 20 Mg/4 Ml Inj IV 20 mg Q4HR PRN Administration Blood Pressure Labetalol HCl 200 mg 10/07/20 22:00 10/07/20 21:32 Labetalol 200 Mg Tab PO 200 mg BID DAMIEN Administration Miscellaneous Medication 1 each 10/08/20 10:00 Dolutegravir/Rilpivirine [Juluca 50-25 Mg Tablet] PO DAILY DAMIEN Neomycin/Polymyxin/Bacitracin 1 applic 10/07/20 10:00 10/07/20 21:38 Neomy 3.5 Mg/Bacit 400 Units/Poly B 5000 Units Oint 15 Gm TP Not Given BID DAMIEN Nifedipine 60 mg 10/08/20 22:00 Nifedipine Xl 60 Mg Tab PO Q12HR DAMIEN Ondansetron HCl 4 mg 10/07/20 06:02 Ondansetron 4 Mg/2 Ml Inj IV Q8H PRN Nausea And Vomiting Sodium Chloride 10 ml 10/07/20 10:00 10/07/20 21:38 Sodium Chloride 0.9% 10 Ml Flush Syringe IV 10 ml BID DAMIEN Administration Sodium Chloride 10 ml 10/07/20 06:02 Sodium Chloride 0.9% 10 Ml Flush Syringe IV PRN PRN LINE FLUSH
[2020-10-08] MEDS: FAMOTIDINE 20 MG/2 ML INJ IV SCH (15:57)
[2020-10-08] MEDS: NIFEdipine XL 60 MG TAB PO SCH (16:37)
[2020-10-08] MEDS: NEOMY 3.5 MG/BACIT 400 UNITS/POLY B 5000 UNITS OINT 15 GM TP SCH ×2 (16:51→21:16)
[2020-10-09 06:42] LABS: Calcium 9.9 mg/dL (8.4-10.2)
[2020-10-09] MEDS: NIFEdipine XL 60 MG TAB PO SCH (10:03)
[2020-10-09] MEDS: FAMOTIDINE 20 MG/2 ML INJ IV SCH (10:04)
--- NOTE | 2020-10-09 10:06 | Discharge Summary ---
Providers - Providers Date of Admission: 10/07/20 05:50 Date of discharge: 10/09/20 Attending physician: MICHELLE LEE MD 10/07/20 05:19 Consult to Physician [CONS] Urgent Comment: Dr. Harvey spoke with Dr. Kyle @ 0517 Consulting Provider: QUIANA KYLE Physician Instructions: Reason For Exam: esrd needing HD 10/08/20 13:22 Consult to Physician [CONS] Routine Comment: Consulting Provider: ROSS CEDEÑO Physician Instructions: Reason For Exam: evaluate A/V fistula- prolonged bleeding Primary care physician: INSTRUCTIONAL SERVICES SPECIALIST Hospitalization Condition: Stable Hospital course: Assessment and plan: 29-year-old -[place]ian male with past medical history of end-stage renal disease, HIV, hypertension who presents with hyperkalemia - Patient Problems End-stage renal disease needing dialysis Status: Acute Plan to address problem: Nephrology consulted Nephrology managing hemodialysis Hyperkalemia Status: Acute Plan to address problem: Patient already get 10 units of insulin, 1 ampoule of D50 and calcium chloride 1 g IV x1 dose. . Resolved hyperkalemia with hemodialysis Gastroenteritis Status: Acute Plan to address problem: Pepcid 20 mg twice daily Hypertension Status: Acute Plan to address problem: Continue labetalol 200 mg twice daily Continue nifedipine, increase 60 mg twice daily HIV infection - continue HIV medication History Interval history: 10/08/20 pt seen in dialysis, K+ is increased, BP increased, felt nauseated, didn't take medication for bp 10/09/2020: Patient seen, blood pressure better control, potassium has resolved, consulted with nephrology, patient can be discharged and follow with his nephr ologist. Also spoke to the patient pertaining to bleeding fistula, fistula was not bleeding yesterday during dialysis, patient states that he was supposed to be evaluated by vascular surgeon about a year ago but never made the appointment. We will give him the information of a vascular surgeon to follow- up to evaluate his fistula. Patient verbalized understanding of plan. Disposition: -01 TO HOME OR SELFCARE Final Discharge Diagnosis (Prints w/discharge instructions): End-stage renal disease. Hypertensive urgency secondary to renal disease. Hyperkalemia. Gastroenteritis. HIV infection Time spent for discharge: 35 minutes Core Measure Documentation - Palliative Care Palliative Care/ Comfort Measures: Not Applicable - Core Measures Any of the following diagnoses?: none Exam - Physical Exam Narrative exam: General appearance: no acute distress, well-nourished EENT: PERRL, EOM intact, hearing intact, clear oral mucosa Neck: Present: supple, normal ROM Respiratory: bilateral CTA, negative: rales, rhonchi, wheezing Cardiovascular: Regular rate/rhythm, Normal S1 & S2. No gallop, rub Extremities: A/V fistula in left arm, no ischemia, No edema, normal temperature, normal color, Full ROM Abdominal: soft, no tenderness, non-distended, normal bowel sounds Integumentary: Present: clear, warm, dry no wounds, no erythema noted Psychiatric: appropriate mood/affect, intact judgment & insight Neurologic: CNII-XII intact, moves all extremities, no sensory or motor abnormalities - Constitutional Vitals: Temp Pulse Resp BP Pulse Ox 99.2 F 100 H 24 153/100 95 10/09/20 08:00 10/09/20 10:03 10/09/20 09:00 10/09/20 10:03 10/09/20 09:37 Plan Activity: no restrictions Diet: renal Follow up with: SCOTT LOPEZ MD [Primary Care Provider] - 7 Days ROSS BRADY MD [Staff Physician] - 14 Days (Please follow-up with the vascular surgeon to have your AV fistula evaluated.) Prescriptions: labetaloL [Labetalol 200mg TAB] 200 mg PO BID #180 NIFEdipine XL [Procardia Xl] 60 mg PO Q12HR #180 tablet
[2020-10-09 11:10] VITALS: BP 152/105
== END 2020-10-09 12:00 | disposition home or self-care (01) ==
LOC: SUATTDRO 02:54 → ED 02:54 → CC1 05:50 → IMCU 06:39
PROVIDERS: ADMIT Hospitalist; ATTEND Family Medicine
DX: I12.0 Hypertensive chronic kidney disease with stage 5 chronic kidney disease or end stage renal disease (principal); N18.6 End stage renal disease; K52.9 Noninfective gastroenteritis and colitis, unspecified; E87.5 Hyperkalemia; D64.9 Anemia, unspecified; F17.210 Nicotine dependence, cigarettes, uncomplicated; Z99.2 Dependence on renal dialysis; Z79.899 Other long term (current) drug therapy; Z98.890 Other specified postprocedural states; Z21 Asymptomatic human immunodeficiency virus [HIV] infection status
CPT/HCPCS: 36415; 74176; 80048; 80053; 80074; 84132; 85025; 93005; 96365; 96366; 96372; 96375; 96376; 99291; A6250; G0257; G0378; J0360; J1644; J1885; J2405; J1815

== ENCOUNTER 2020-10-17 01:53 | Inpatient (IN) | payer MEDICARE ==
[2020-10-17] MEDS ORDERED: MORPHINE 4 MG/1 ML INJ IV ONE (02:03)
[2020-10-17] MEDS ORDERED: ONDANSETRON 4 MG/2 ML INJ IV ONE (02:03)
--- NOTE | 2020-10-17 02:06 | Emergency Department Report ---
HPI - General Chief Complaint: Abdominal Pain Time Seen by Provider: 10/17/20 01:58 - HPI HPI: This is a 29-year-old -[place]ian male who presents to the emergency department via EMS from home with complaint of a 2-day history of nausea with vomiting, diarrhea, and generalized cramping abdominal pain. The patient has a past medical history of HIV, hypertension, and end-stage renal disease on hemodialysis on Saturday/Saturday/Saturday. Patient gets dialysis at the [facility] on [address] but does not recall the name of his food porter. The patient was just recently admitted here about 10 days ago for similar complaints after he was found to have severe hyperkalemia despite compliance with his dialysis. He denies any fever, chest pain, shortness of breath. He has not been able to take anything for his symptoms prior to presentation today. No recent travel or sick contacts at home. He estimates his abdominal pain to be about a 7 out of 10 in intensity. No known aggravating or alleviating factors. ED Past Medical Hx - Past Medical History Previous Medical History?: Yes Hx Hypertension: Yes Hx Renal Disease: Yes (MWF) Hx HIV: Yes - Surgical History Past Surgical History?: Yes Additional Surgical History: R arm fistula - Social History Smoking Status: Never Smoker Substance Use Type: None - Medications Home Medications: Home Medications Medication Instructions Recorded Confirmed Last Taken Type Dolutegravir/Rilpivirine [[place]uca 1 tab PO DAILY 10/07/20 10/07/20 Unknown History 50-25 mg Tablet] NIFEdipine XL [Procardia Xl] 60 mg PO Q12HR #180 tablet 10/09/20 Unknown Rx labetaloL [Labetalol 200mg TAB] 200 mg PO BID #180 10/09/20 Unknown Rx ED Review of Systems ROS: Stated complaint: NAUSEA,ABD PAIN,HTN Other details as noted in HPI Comment: All other systems reviewed and negative Constitutional: denies: chills, fever Eyes: denies: eye pain, vision change ENT: denies: ear pain, throat pain Respiratory: denies: cough, shortness of breath Cardiovascular: denies: chest pain, palpitations Gastrointestinal: abdominal pain, nausea, vomiting, diarrhea Genitourinary: denies: dysuria, discharge Musculoskeletal: denies: back pain, arthralgia Skin: denies: rash, lesions Neurological: denies: headache, weakness Physical Exam - Physical Exam Physical Exam: GENERAL: The patient is well-developed well-nourished. HENT: Normocephalic. Atraumatic. Patient has moist mucous membranes. EYES: Extraocular motions are intact. NECK: Supple. Trachea is midline. CHEST/LUNGS: Clear to auscultation. There is no respiratory distress noted. HEART/CARDIOVASCULAR: Regular. There is mild tachycardia. There is no murmur. ABDOMEN: Abdomen is soft. General abdominal tenderness to palpation. No guarding. Patient has normal bowel sounds. There is no abdominal distention. SKIN: Skin is warm and dry. NEURO: The patient is awake, alert, and oriented. The patient is cooperative. The patient has no focal neurologic deficits. Normal speech. MUSCULOSKELETAL: There is no tenderness or deformity. There is no limitation range of motion. ED Course - Consultations Consultation #1: 10/17/20 03:42 I spoke to the food porter on-call, Dr. Contreras, who will consult on the patient for dialysis and his hyperkalemia. ED Medical Decision Making - Lab Data Result diagrams: 10/17/20 02:07 10/17/20 02:07 - EKG Data -: EKG Interpreted by Me EKG shows normal: sinus rhythm, axis (Left axis deviation), intervals (Prolonged QTC), QRS complexes (Right bundle branch block), ST-T waves (There are some tenting T waves to the anterior leads) Rate: normal - EKG Data When compared to previous EKG there are: no significant change Interpretation: unchanged when compared t (10/07/20) - Radiology Data Radiology results: image reviewed interpreted by me: Chest x-ray shows cardiomegaly, pulmonary vascular congestion and very mild interstitial edema. No widened mediastinum. Abdominal x-ray shows nonspecific nonobstructive bowel gas. - Medical Decision Making This patient presents to the emergency department with a complaint of a 2-day history of nausea with vomiting, and abdominal pain. Patient says that it feels like when he was here about 1 week ago with severe hyperkalemia. There is some reproducible abdominal tenderness to palpation. Abdominal x-ray shows nonspecific nonobstructive bowel gas. No free air. Chest x-ray shows pulmonary vascular congestion, cardiomegaly, and some mild interstitial edema. Labs show hyperkalemia with a potassium of 6.5, renal insufficiency and elevated BUN consistent with his end-stage renal disease on hemodialysis. Patient was given calcium gluconate, Kayexalate and albuterol. Nephrology was contacted and consulted. Patient has received multiple doses of IV antihypertensive medication secondary to a very elevated blood pressure. The patient has been accepted for admission by the hospitalist, Dr. Licona. Critical Care Time: Yes Critical care time in (mins) excluding proc time.: 35 Critical care attestation.: If time is entered above; I have spent that time in minutes in the direct care of this critically ill patient, excluding procedure time. Critical care time was spent on this patient in doing his initial evaluation, multiple reevaluations, ordering and interpretation of labs and imaging, discussion with the nephrology and hospitalist services, hyperkalemia cocktail, multiple doses of antihypertensive medication. Critical Care Time: 35 minutes ED Disposition Clinical Impression: Hypertensive urgency, End-stage renal disease needing dialysis, Hyperkalemia Nausea and vomiting Qualifiers: Vomiting type: unspecified Vomiting Intractability: non-intractable Qualified Code(s): R11.2 - Nausea with vomiting, unspecified Disposition: 09 OP ADMIT IP TO THIS HOSP Is pt being admited?: Yes Condition: Serious Referrals: PRIMARY CARE, [Primary Care Provider] - 3-5 Days Time of Disposition: 03:43
[2020-10-17 02:27] LABS: Basophils % (Auto) 0.6 % (0.0-1.8); Eosinophils # (Auto) 0.1 K/mm3 (0.0-0.4); Eosinophils % (Auto) 1.2 % (0.0-4.3); Hematocrit 33.5 % (35.5-45.6); Hemoglobin 11.3 gm/dl (11.8-15.2); Lymphocytes # (Auto) 1.5 K/mm3 (1.2-5.4); Lymphocytes % (Auto) 26.4 % (13.4-35.0); Mean Corpuscular HGB Conc 34 % (32-34); Mean Corpuscular Volume 99 fl (84-94); Monocytes # (Auto) 0.3 K/mm3 (0.0-0.8); Monocytes % (Auto) 5.6 % (0.0-7.3); Platelet Count 184 K/mm3 (140-440); Red Blood Count 3.38 M/mm3 (3.65-5.03); Red Cell Distribution Width 19.2 % (13.2-15.2)
[2020-10-17 02:44] LABS: Albumin 4.6 g/dL (3.9-5); Bilirubin,Direct 0.3 mg/dL (0-0.2); Calcium 10.1 mg/dL (8.4-10.2)
[2020-10-17 02:47] LABS: INR 1.18 (0.87-1.13)
[2020-10-17] MEDS ORDERED: ALBUTEROL 2.5 MG/3 ML NEBU IH ONE (03:06)
[2020-10-17] MEDS ORDERED: CALCIUM GLUCONATE 1,000 MG in SODIUM CHLORIDE 0.9% 100 ML IV ONE (03:06)
[2020-10-17] MEDS ORDERED: SODIUM POLYSTYRENE 15 GM/60 ML ORAL LIQD PO ONE (03:06)
--- NOTE | 2020-10-17 03:09 | XRay Report ---
XR abd series w cxr 1V INDICATION / CLINICAL INFORMATION: Abd pain. COMPARISON: None available. FINDINGS: There is cardiomegaly with pulmonary vasculature congestion. No airspace consolidation or effusion. N o pneumothorax. Bowel gas pattern is nonobstructive. No free air. No acute osseous findings. IMPRESSION: Cardiomegaly with pulmonary vasculature congestion, consistent with CHF. No acute abnormality of the abdomen. Signer Name: Booker Peoples MD Signed: 10/17/2020 3:04 AM Workstation Name: [id number]
[2020-10-17] MEDS ORDERED: hydrALAZINE 20 MG/1 ML INJ IV ONE (03:15)
[2020-10-17] MEDS ORDERED: MORPHINE 4 MG/1 ML INJ IV PRN (04:22)
[2020-10-17] MEDS ORDERED: MORPHINE 2 MG/1 ML INJ IV PRN (04:22)
[2020-10-17] MEDS ORDERED: MAGNESIUM HYDROXIDE (MOM) ORAL LIQD UDC PO PRN (04:22)
[2020-10-17] MEDS ORDERED: ACETAMINOPHEN 325 MG TAB PO PRN (04:22)
--- NOTE | 2020-10-17 04:34 | History and Physical Report ---
History of Present Illness Date of examination: 10/17/20 Date of admission: 10/17/2020 Chief complaint: Nausea and vomiting History of present illness: 29-year-old -Eth[place]ian male with known history of hypertension, HIV and end-stage renal disease on dialysis on Mondays, Wednesdays and Fridays presents to the emergency room today complaining of nausea, vomiting, diarrhea and crampy abdominal pain. There is no no relieving or exacerbating factor for his abd ominal pain. Pain is about 7/10 in severity. Pain is also said to be generalized. Patient denies any fever or chills, no headache or dizziness, no chest pain. No headache or dizziness and no diaphoresis. Patient indicates he has had some shortness of breath. Denies any cough. Patient denies any sick contacts and no recent travel. Denies any contact with anyone with COVID-19. Patient was admitted with similar complaints about 10 days ago with severe hyperkalemia. He has been compliant with his dialysis. Upon arrival in the emergency room today, work-up reveals a potassium of 6.5, BUN was 78 and creatinine 15.5. Chest x-ray was remarkable for cardiomegaly with pulmonary vascular congestion consistent with CHF. No acute abnormality on the x-ray of the abdomen. [employer]car Weig[facility] Dr. Contreras has been notified by the ER physician Past History Past Medical History: dialysis (Gets dialysis on Mondays, Wednesdays and Fridays.), ESRD, hypertension, other (History of HIV) Past Surgical History: Other (AV fistula placement in the right arm) Social history: no significant social history Family history: no significant family history Medications and Allergies Allergies Allergy/AdvReac Type Severity Reaction Status Date / Time No Known Allergies Allergy Verified 10/08/20 07:57 Home Medications Medication Instructions Recorded Confirmed Last Taken Type Dolutegravir/Rilpivirine [Juluca 1 tab PO DAILY 10/07/20 10/07/20 Unknown History 50-25 mg Tablet] NIFEdipine XL [Procardia Xl] 60 mg PO Q12HR #180 tablet 10/09/20 Unknown Rx labetaloL [Labetalol 200mg TAB] 200 mg PO BID #180 10/09/20 Unknown Rx Active Meds: Active Medications Acetaminophen (Acetaminophen 325 Mg Tab) 650 mg PO Q4H PRN PRN Reason: Pain MILD(1-3)/Fever >100.5/PATEL Magnesium Hydroxide (Magnesium Hydroxide (Mom) Oral Liqd Udc) 30 ml PO Q4H PRN PRN Reason: Constipation Morphine Sulfate (Morphine 2 Mg/1 Ml Inj) 2 mg IV Q4H PRN PRN Reason: Pain, Moderate (4-6) Morphine Sulfate (Morphine 4 Mg/1 Ml Inj) 4 mg IV Q4H PRN PRN Reason: Pain , Severe (7-10) Ondansetron HCl (Ondansetron 4 Mg/2 Ml Inj) 4 mg IV Q8H PRN PRN Reason: Nausea And Vomiting Sodium Chloride (Sodium Chloride 0.9% 10 Ml Flush Syringe) 10 ml IV BID DAMIEN Sodium Chloride (Sodium Chloride 0.9% 10 Ml Flush Syringe) 10 ml IV PRN PRN PRN Reason: LINE FLUSH Review of Systems Constitutional: no fever, no chills, no fatigue, no weakness Ears, nose, mouth and throat: no nasal congestion, no sore throat Cardiovascular: no chest pain, no palpitations Respiratory: shortness of breath, no cough, no excessive sputum Gastrointestinal: abdominal pain, nausea, vomiting, no BRBPR, no melena Genitourinary Male: no dysuria, no hematuria, no flank pain, no nocturia Musculoskeletal: no neck pain, no low back pain Integumentary: no rash, no pruritis Neurological: no headaches, no confusion Psychiatric: no anxiety, no depression Endocrine: no polyphagia, no polydipsia, no polyuria, no nocturia Exam - Constitutional Vitals: Temp Pulse Resp BP Pulse Ox 98.6 F 98 H 21 190/127 98 10/17/20 03:34 10/17/20 03:30 10/17/20 03:30 10/17/20 03:30 10/17/20 03:30 General appearance: Present: no acute distress, well-nourished - EENT Eyes: Present: PERRL, EOM intact. Absent: scleral icterus ENT: hearing intact, clear oral mucosa, dentition normal - Neck Neck: Present: supple, normal ROM - Respiratory Respiratory effort: normal Respiratory: bilateral: CTA - Cardiovascular Rhythm: regular Heart Sounds: Present: S1 & S2. Absent: gallop, systolic murmur, diastolic murmur, rub, click - Extremities Extremities: no ischemia, pulses intact, pulses symmetrical, No edema, Full ROM, abnormal (Right forearm AV fistula, palpable thrill) Peripheral Pulses: within normal limits - Abdominal General gastrointestinal: Present: soft, tender (Mild epigastric tenderness, no rebound tenderness and no guarding.), non-distended, normal bowel sounds. Absent: mass - Integumentary Integumentary: Present: clear, warm, dry. Absent: rash - Musculoskeletal Musculoskeletal: strength equal bilaterally - Psychiatric Psychiatric: appropriate mood/affect, intact judgment & insight, memory intact, cooperative - Neurologic Neurologic: CNII-XII intact, no focal deficits, moves all extremities Results - Labs CBC & Chem 7: 10/17/20 02:07 10/17/20 02:07 Labs: Abnormal lab results 10/17/20 10/17/20 10/17/20 Range/Units 02:07 02:07 02:07 RBC 3.38 L (3.65-5.03) M/mm3 Hgb 11.3 L (11.8-15.2) gm/dl Hct 33.5 L (35.5-45.6) % MCV 99 H (84-94) fl MCH 33 H (28-32) pg RDW 19.2 H (13.2-15.2) % PT 15.5 H (12.2-14.9) Sec. INR 1.18 H (0.87-1.13) Potassium 6.5 H* (3.6-5.0) mmol/L Chloride 95.0 L (98-107) mmol/L BUN 78 H (9-20) mg/dL Creatinine 15.5 H (0.8-1.3) mg/dL Direct Bilirubin 0.3 H (0-0.2) mg/dL Assessment and Plan - Patient Problems (1) Nausea and vomiting Current Visit: Yes Status: Acute Qualifiers: Vomiting type: unspecified Vomiting Intractability: non-intractable Qualified Code(s): R11.2 - Nausea with vomiting, unspecified Plan to address problem: Patient placed on IV Zofran as needed. (2) Hyperkalemia Current Visit: Yes Status: Acute Plan to address problem: Patient has received Kayexalate, insulin and glucose and IV calcium gluconate in the emergency room. We will monitor chemistry. Patient to be scheduled for dialysis (3) End-stage renal disease needing dialysis Current Visit: Yes Status: Acute Plan to address problem: Patient gets dialysis on Mondays, Wednesdays and Fridays. Dr. Gil has been notified by the ER staff. (4) Hypertensive urgency Current Visit: Yes Status: Acute Plan to address problem: We will resume routine home medications once able to tolerate p.o. intake. Patient placed on IV hydralazine as needed. Will monitor vital signs closely. (5) DVT prophylaxis Current Visit: No Status: Acute Plan to address problem: Patient placed on subcutaneous heparin. (6) Full code status Current Visit: Yes Status: Acute Plan to address problem: Patient is full code.
[2020-10-17] MEDS: hydrALAZINE 20 MG/1 ML INJ IV PRN ×4 (04:58→21:24)
[2020-10-17] MEDS: ONDANSETRON 4 MG/2 ML INJ IV PRN ×3 (07:17→21:25)
--- NOTE | 2020-10-17 08:55 | Event Note ---
Date: 10/17/20 Patient seen and examined. This is a follow-up from an admission earlier this morning. Patient continues to have nausea, vomiting and left-sided abdominal pain. Check CT scan of the abdomen pelvis. We will continue to plan as outlined in the H&P. Nephrology consulted for hyperkalemia and ESRD needing dialysis. Continue hydralazine IV given the vomiting for blood pressure control. Total visit time equals 35 minutes with greater than 50% spent on coordination of care and counseling
--- NOTE | 2020-10-17 09:36 | Cat Scan Report ---
CT ABDOMEN AND PELVIS WITHOUT CONTRAST HISTORY: abd pain; PT STATES HIS LOWER ABDOMEN IS IN PAIN, ALSO COMPLAINS OF N/V. COMPARISON: October 07, 2020 TECHNIQUE: CT images of the abdomen and pelvis were obtained without administration of intravenous co ntrast. All CT scans at this location are performed using CT dose reduction for ALARA by means of au tomated exposure control. FINDINGS: Lungs/bones: Cardiomegaly with small pericardial effusion. There are groundglass opacities in bilate ral lower lungs again noted. Abdomen/pelvis: Liver is enlarged and heterogeneous. There is periportal edema again noted. Gallblad ghulam wall thickening is again seen. There may be some fluid surrounding the gallbladder. Spleen is unc hanged.. Minimal inflammation around the superior pole of the right kidney appears similar to prior e xamination. Evaluation of the portal vein is limited without contrast. Visualized portions of the hawkins creas appear normal. No bowel obstruction is definitely seen. There may be some thickening of the dis stephanie sigmoid colon. Appendix is not well identified. Stomach and small bowel may be diffusely edematou s without dilatation. Body wall anasarca is noted. No hydronephrosis or obstructing change. No acute bone findings are seen. IMPRESSION: 1. Cardiomegaly with pericardial effusion. 2. Significant bilateral renal atrophy. Minimal inflammation along the superior aspect of the right k idney however this appears unchanged. No free fluid or collection. 3. Groundglass opacities in bilateral lower lungs. 4. No bowel obstruction. Distal sigmoid colon may be mildly thickened however unchanged. 5. Diffuse thickening surrounding the gallbladder with some surrounding fluid is well. Findings may b e secondary to periportal edema however clinical correlation for gallbladder abnormality. 6. Periportal edema with hepatomegaly. Findings appears similar to prior exam. Signer Name: Dylon Marmolejo MD Signed: 10/17/2020 9:31 AM Workstation Name: [id number]
[2020-10-17] MEDS ORDERED: SODIUM CHLORIDE 0.9% 100 ML IV PRN (10:30)
--- NOTE | 2020-10-17 10:53 | Event Note ---
Date: 10/17/20 Official consult to follow- patient seen on rounds this AM and provides verbal consent for hemodialysis
--- NOTE | 2020-10-17 10:57 | Consultation ---
History of Present Illness - Reason for Consult Consult date: 10/17/20 end stage renal disease - History of Present Illness This is a 29 year-old man with ESRD who presents for nausea, vomiting, found to be hyperkalemic Patient usually dialyzes MWF at [facility]. Last HD 10/14. Denies any recent issues with HD, including dizziness, lightheadedness, cramping, chest pain on HD. Began feeling sick on 10/15 with poor appetite, nausea, vomiting despite full HD session on 10/14 Currently, patient denies any issues including dyspnea, edema, access issues, headaches. Notes ongoing nausea/vomiting Past History Past Medical History: dialysis (Gets dialysis on Mondays, Wednesdays and Fridays.), ESRD, hypertension, other (History of HIV) Past Surgical History: Other (AV fistula placement in the right arm) Social history: no significant social history Family history: no significant family history Medications and Allergies Allergies Allergy/AdvReac Type Severity Reaction Status Date / Time No Known Allergies Allergy Verified 10/08/20 07:57 Home Medications Medication Instructions Recorded Confirmed Last Taken Type Dolutegravir/Rilpivirine [Juluca 1 tab PO DAILY 10/07/20 10/17/20 2 Days Ago History 50-25 mg Tablet] ~10/15/20 NIFEdipine XL [Procardia Xl] 60 mg PO Q12HR #180 tablet 10/09/20 10/17/20 2 Days Ago Rx ~10/15/20 60 mg labetaloL [Labetalol 200mg TAB] 200 mg PO BID #180 10/09/20 10/17/20 2 Days Ago Rx ~10/15/20 200 mg Active Meds: Active Medications Acetaminophen (Acetaminophen 325 Mg Tab) 650 mg PO Q4H PRN PRN Reason: Pain MILD(1-3)/Fever >100.5/PATEL Hydralazine HCl (Hydralazine 20 Mg/1 Ml Inj) 10 mg IV Q4H PRN PRN Reason: Blood Pressure Last Admin: 10/17/20 08:01 Dose: 10 mg Documented by: Sodium Chloride (Nacl 0.9%) 100 mls @ 999 mls/hr IV CITLALI PRN PRN Reason: Hypotension Magnesium Hydroxide (Magnesium Hydroxide (Mom) Oral Liqd Udc) 30 ml PO Q4H PRN PRN Reason: Constipation Morphine Sulfate (Morphine 2 Mg/1 Ml Inj) 2 mg IV Q4H PRN PRN Reason: Pain, Moderate (4-6) Morphine Sulfate (Morphine 4 Mg/1 Ml Inj) 4 mg IV Q4H PRN PRN Reason: Pain , Severe (7-10) Ondansetron HCl (Ondansetron 4 Mg/2 Ml Inj) 4 mg IV Q8H PRN PRN Reason: Nausea And Vomiting Last Admin: 10/17/20 07:17 Dose: 4 mg Documented by: Sodium Chloride (Sodium Chloride 0.9% 10 Ml Flush Syringe) 10 ml IV BID DAMIEN Sodium Chloride (Sodium Chloride 0.9% 10 Ml Flush Syringe) 10 ml IV PRN PRN PRN Reason: LINE FLUSH Review of Systems All systems: negative (as per HPI, noted nausea and vomiting) Exam - Vital Signs Vital signs: Vital Signs Resp Pulse Ox 18 98 10/17/20 02:00 10/17/20 02:00 - Physical Exam Narrative exam: Constitutional: mild acute distress Head: NC/AT Neck: supple Lungs: clear to auscultation CV: RRR, no M/R/G Abdomen: soft, non-tender, bowel sounds present Back: nontender Extremities: no edema, pulses WNL Skin: intact Neuro: no focal deficits, alert and oriented x4 Results - Lab Results 10/17/20 02:07 10/17/20 02:07 Most recent lab results Calcium 10.1 mg/dL (8.4-10.2) 10/17/20 02:07 Assessment and Plan This is a 29 year old man who presents with nausea, K 6.5 # ESRD: HD today for K 6.5, uremic symptoms. Continue HD MWF or prn. Unclear why he is having these symptoms despite HD, may need longer run as outpatient. Rule out other etiologies per primary if symptoms do not improve with toxin removal. - access: AVF- intact with good thrill, bruit - daily labs - renally dose meds - avoid nephrotoxins - renal diet - verbal consent obtained for HD # Anemia: last hemoglobin 11.3, no indication for acute ESAs # HTN: UF as tolerated. BP high, continue home antihypertensives, may be contributing to nausea/vomiting # Secondary Hyperparathyroidism: continue home binders as needed # Nausea/Vomiting: management per primary, HD for toxin clearance today as noted
--- NOTE | 2020-10-17 11:21 | Electrocardiograph Report ---
[facility] Test Date: 2020-10-17 Test Time: 04:35:24 Pat Name: TEOFILO CISNEROS III Department: Room: A489 Gender: M Sound Engineer: KAYE : 1990 Requested By: JOSE HARVEY Order Number: [id number] Reading MD: Maxx Brownlee Measurements Intervals [place] Rate: 100 P: 64 [place]: 184 QRS: -53 QRSD: 123 T: 85 QT: 401 QTc: 518 Interpretive Statements Sinus tachycardia LAE, consider biatrial enlargement IVCD, consider RBBB ST elevation suggests acute pericarditis Compared to ECG 10/07/2020 04:51:29 No significant change except rate is slightly faster. Electronically Signed On 10-17-2020 11:20:47 EDT by Maxx Brownlee
[2020-10-18] MEDS: hydrALAZINE 20 MG/1 ML INJ IV PRN ×3 (06:39→13:48)
[2020-10-18 06:50] LABS: Basophils % (Auto) 0.2 % (0.0-1.8); Eosinophils % (Auto) 0.5 % (0.0-4.3); Hemoglobin 10.7 gm/dl (11.8-15.2); Lymphocytes # (Auto) 0.9 K/mm3 (1.2-5.4); Lymphocytes % (Auto) 17.7 % (13.4-35.0); Mean Corpuscular HGB Conc 34 % (32-34); Mean Corpuscular Volume 100 fl (84-94); Monocytes # (Auto) 0.3 K/mm3 (0.0-0.8); Monocytes % (Auto) 6.5 % (0.0-7.3); Platelet Count 160 K/mm3 (140-440); Red Cell Distribution Width 19.7 % (13.2-15.2)
[2020-10-18 07:00] LABS: INR 1.2 (0.87-1.13)
[2020-10-18 07:02] LABS: Calcium 10.3 mg/dL (8.4-10.2)
[2020-10-18] MEDS: ONDANSETRON 4 MG/2 ML INJ IV PRN (09:39)
[2020-10-18] MEDS ORDERED: amLODIPine 10 MG TAB PO SCH (10:44)
--- NOTE | 2020-10-18 10:45 | Progress Note ---
Assessment and Plan This is a 29 year old man who presents with nausea, K 6.5 # ESRD: HD 10/17 for K 6.5, uremic symptoms. Continue HD MWF or prn, no indicati on for HD today, can medically manage K 5.6 - access: AVF- intact with good thrill, bruit - daily labs - renally dose meds - avoid nephrotoxins - renal diet - verbal consent obtained for HD # Anemia: last hemoglobin 10.7, no indication for acute ESAs # HTN: UF as tolerated. BP remains high, restarted home antihypertensives (nifedipine not on formulary, will use amlodipine), may be contributing to nausea/vomiting # Secondary Hyperparathyroidism: continue home binders as needed # Nausea/Vomiting: management per primary Subjective Date of service: 10/18/20 Interval history: Resting this AM, had HD yesterday with no issues noted Objective - Exam Narrative Exam: Constitutional: no acute distress Head: NC/AT Neck: supple Lungs: clear to auscultation CV: RRR, no M/R/G Abdomen: soft, non-tender, bowel sounds present Back: nontender Extremities: no edema, pulses WNL Skin: intact Neuro: no focal deficits, alert and oriented x4 - Vital Signs Vital signs: Vital Signs - 12hr 10/17/20 10/18/20 10/18/20 23:20 03:57 06:39 Temperature 98.6 F 98.2 F Pulse Rate 108 H 109 H Respiratory 18 16 Rate Blood Pressure 156/109 167/111 167/111 O2 Sat by Pulse 92 89 Oximetry 10/18/20 08:03 Temperature 98.5 F Pulse Rate 106 H Respiratory 20 Rate Blood Pressure 178/122 O2 Sat by Pulse 94 Oximetry - Lab 10/18/20 06:25 10/18/20 06:25 Most recent lab results Calcium 10.3 mg/dL (8.4-10.2) H 10/18/20 06:25 Medications & Allergies - Medications Allergies/Adverse Reactions: Allergies No Known Allergies Allergy (Verified 10/08/20 07:57) Home Medications: Home Medications Medication Instructions Recorded Confirmed Last Taken Type Dolutegravir/Rilpivirine [Juluca 1 tab PO DAILY 10/07/20 10/17/20 2 Days Ago History 50-25 mg Tablet] ~10/15/20 NIFEdipine XL [Procardia Xl] 60 mg PO Q12HR #180 tablet 10/09/20 10/17/20 2 Days Ago Rx ~10/15/20 60 mg labetaloL [Labetalol 200mg TAB] 200 mg PO BID #180 10/09/20 10/17/20 2 Days Ago Rx ~10/15/20 200 mg Active Medications: Generic Name Dose Route Start Last Admin Trade Name Freq PRN Reason Stop Dose Admin Acetaminophen 650 mg 10/17/20 04:22 10/17/20 17:36 Acetaminophen 325 Mg Tab PO 650 mg Q4H PRN Administration Pain MILD(1-3)/Fever >100.5/PATEL Hydralazine HCl 10 mg 10/17/20 04:46 10/18/20 09:35 Hydralazine 20 Mg/1 Ml Inj IV 10 mg Q4H PRN Administration Blood Pressure Sodium Chloride 100 mls @ 999 mls/hr 10/17/20 10:30 Nacl 0.9% IV CITLALI PRN Hypotension Magnesium Hydroxide 30 ml 10/17/20 04:22 Magnesium Hydroxide (Mom) Oral Liqd Udc PO Q4H PRN Constipation Morphine Sulfate 2 mg 10/17/20 04:22 Morphine 2 Mg/1 Ml Inj IV Q4H PRN Pain, Moderate (4-6) Morphine Sulfate 4 mg 10/17/20 04:22 Morphine 4 Mg/1 Ml Inj IV Q4H PRN Pain , Severe (7-10) Ondansetron HCl 4 mg 10/17/20 04:22 10/18/20 09:39 Ondansetron 4 Mg/2 Ml Inj IV 4 mg Q8H PRN Administration Nausea And Vomiting Sodium Chloride 10 ml 10/17/20 10:00 10/18/20 10:18 Sodium Chloride 0.9% 10 Ml Flush Syringe IV 10 ml BID DAMIEN Administration Sodium Chloride 10 ml 10/17/20 04:22 10/18/20 06:39 Sodium Chloride 0.9% 10 Ml Flush Syringe IV 10 ml PRN PRN Administration LINE FLUSH
[2020-10-18] MEDS ORDERED: ACETAMINOPHEN 500 MG TAB PO ONE (12:00)
[2020-10-18] MEDS: NIFEdipine XL 60 MG TAB PO SCH ×2 (13:32→21:38)
--- NOTE | 2020-10-18 15:38 | Progress Note ---
Assessment and Plan Assessment and plan: 29-year-old -Guinean male with end-stage renal disease and hypertensive urgency End-stage renal disease Saturday Nephrology consulted Continue dialysis Hyperkalemia Kayexalate, insulin, glucose, calcium gluconate Continue to monitor potassium, should be resolved with dialysis Hypertensive urgency Home medications were not restarted, spoke with the nurse to restart the home medications and give in addition to IV hydralazine Acute nausea and vomiting Probably secondary to hypertensive urgency Zofran as needed CODE STATUS: Full DVT prophylaxis: Heparin Disposition: Continue treatment for hyperkalemia and hypertension. History Interval history: 10/18/2020: Patient seen and examined, states that he has a headache and he feels nauseated. Blood pressure is elevated, I spoke with the nurse to restart his home medications, apparently they were not restarted. Hospitalist Physical - Physical exam Narrative exam: General appearance: no acute distress, well-nourished EENT: PERRL, EOM intact, hearing intact, clear oral mucosa Neck: Present: supple, normal ROM Respiratory: bilateral CTA, negative: rales, rhonchi, wheezing Cardiovascular: Regular rate/rhythm, Normal S1 & S2. No gallop, rub Extremities: AV fistula in left arm, no ischemia, No edema, normal temperature, normal color, Full ROM Abdominal: soft, no tenderness, non-distended, normal bowel sounds Integumentary: Present: clear, warm, dry no wounds, no erythema noted Psychiatric: appropriate mood/affect, intact judgment & insight Neurologic: CNII-XII intact, moves all extremities, no sensory or motor abnormalities - Constitutional Vitals: Temp Pulse Resp BP Pulse Ox 99.0 F 107 H 22 167/117 96 10/18/20 10:56 10/18/20 10:56 10/18/20 10:56 10/18/20 13:48 10/18/20 10:56 Results - Labs CBC & Chem 7: 10/18/20 06:25 10/18/20 06:25 Labs: Laboratory Last Values WBC 4.9 K/mm3 (4.5-11.0) 10/18/20 06:25 RBC 3.20 M/mm3 (3.65-5.03) L 10/18/20 06:25 Hgb 10.7 gm/dl (11.8-15.2) L 10/18/20 06:25 Hct 32.0 % (35.5-45.6) L 10/18/20 06:25 MCV 100 fl (84-94) H 10/18/20 06:25 MCH 34 pg (28-32) H 10/18/20 06:25 MCHC 34 % (32-34) 10/18/20 06:25 RDW 19.7 % (13.2-15.2) H 10/18/20 06:25 Plt Count 160 K/mm3 (140-440) 10/18/20 06:25 Lymph % (Auto) 17.7 % (13.4-35.0) 10/18/20 06:25 [place] % (Auto) 6.5 % (0.0-7.3) 10/18/20 06:25 Eos % (Auto) 0.5 % (0.0-4.3) 10/18/20 06:25 Baso % (Auto) 0.2 % (0.0-1.8) 10/18/20 06:25 Lymph # (Auto) 0.9 K/mm3 (1.2-5.4) L 10/18/20 06:25 [place] # (Auto) 0.3 K/mm3 (0.0-0.8) 10/18/20 06:25 Eos # (Auto) 0.0 K/mm3 (0.0-0.4) 10/18/20 06:25 Baso # (Auto) 0.0 K/mm3 (0.0-0.1) 10/18/20 06:25 Seg Neutrophils % 75.1 % (40.0-70.0) H 10/18/20 06:25 Seg Neutrophils # 3.7 K/mm3 (1.8-7.7) 10/18/20 06:25 PT 15.7 Sec. (12.2-14.9) H 10/18/20 06:25 INR 1.20 (0.87-1.13) H 10/18/20 06:25 Sodium 139 mmol/L (137-145) 10/18/20 06:25 Potassium 5.6 mmol/L (3.6-5.0) H 10/18/20 06:25 Chloride 94.7 mmol/L (98-107) L 10/18/20 06:25 Carbon Dioxide 28 mmol/L (22-30) 10/18/20 06:25 Anion Gap 22 mmol/L 10/18/20 06:25 BUN 54 mg/dL (9-20) H 10/18/20 06:25 Creatinine 10.9 mg/dL (0.8-1.3) H 10/18/20 06:25 Estimated GFR 7 ml/min 10/18/20 06:25 BUN/Creatinine Ratio 5 % 10/18/20 06:25 Glucose 91 mg/dL (75-100) 10/18/20 06:25 Calcium 10.3 mg/dL (8.4-10.2) H 10/18/20 06:25 Total Bilirubin 1.10 mg/dL (0.1-1.2) 10/17/20 02:07 Direct Bilirubin 0.3 mg/dL (0-0.2) H 10/17/20 02:07 Indirect Bilirubin 0.8 mg/dL 10/17/20 02:07 AST 15 units/L (5-40) 10/17/20 02:07 ALT 20 units/L (7-56) 10/17/20 02:07 Alkaline Phosphatase 92 units/L (35-129) 10/17/20 02:07 Total Protein 8.1 g/dL (6.3-8.2) 10/17/20 02:07 Albumin 4.6 g/dL (3.9-5) 10/17/20 02:07 Albumin/Globulin Ratio 1.3 % 10/17/20 02:07 Javed/IV: Voiding Method Urinal Active Medications - Current Medications Current Medications: Generic Name Dose Route Start Last Admin Trade Name Freq PRN Reason Stop Dose Admin Acetaminophen 650 mg 10/17/20 04:22 10/17/20 17:36 Acetaminophen 325 Mg Tab PO 650 mg Q4H PRN Administration Pain MILD(1-3)/Fever >100.5/PATEL Hydralazine HCl 10 mg 10/17/20 04:46 10/18/20 13:48 Hydralazine 20 Mg/1 Ml Inj IV 10 mg Q4H PRN Administration Blood Pressure Sodium Chloride 100 mls @ 999 mls/hr 10/17/20 10:30 Nacl 0.9% IV CITLALI PRN Hypotension Labetalol HCl 200 mg 10/18/20 13:00 10/18/20 13:32 Labetalol 200 Mg Tab PO 200 mg BID DAMIEN Administration Magnesium Hydroxide 30 ml 10/17/20 04:22 Magnesium Hydroxide (Mom) Oral Liqd Udc PO Q4H PRN Constipation Morphine Sulfate 2 mg 10/17/20 04:22 10/18/20 11:07 Morphine 2 Mg/1 Ml Inj IV 2 mg Q4H PRN Administration Pain, Moderate (4-6) Morphine Sulfate 4 mg 10/17/20 04:22 Morphine 4 Mg/1 Ml Inj IV Q4H PRN Pain , Severe (7-10) Nifedipine 60 mg 10/18/20 12:00 10/18/20 13:32 Nifedipine Xl 60 Mg Tab PO 60 mg Q12HR DAMIEN Administration Ondansetron HCl 4 mg 10/17/20 04:22 10/18/20 09:39 Ondansetron 4 Mg/2 Ml Inj IV 4 mg Q8H PRN Administration Nausea And Vomiting Sodium Chloride 10 ml 10/17/20 10:00 10/18/20 10:18 Sodium Chloride 0.9% 10 Ml Flush Syringe IV 10 ml BID DAMIEN Administration Sodium Chloride 10 ml 10/17/20 04:22 10/18/20 06:39 Sodium Chloride 0.9% 10 Ml Flush Syringe IV 10 ml PRN PRN Administration LINE FLUSH Nutrition/Malnutrition Assess - Dietary Evaluation Nutrition/Malnutrition Findings: Nutrition Notes Start: 10/18/20 15:07 Freq: Status: Active Protocol: Document 10/18/20 15:07 CW (Rec: 10/18/20 15:18 CW [id number]) Nutrition Notes Need for Assessment generated from: MST Initial or Follow up Assessment Current Diagnosis CKD (stage V CKD),Hypertension Other Pertinent Diagnosis HIV, on HD Current Diet Cardiac Labs/Tests K 5.6 BUN 54 Cr 10.9 Pertinent Medications Zofran Height 6 ft 3 in Weight 85.5 kg Usual Body Weight 80 kg Gordon Body Weight (kg) 89.09 BMI 23.6 Intake Prior to Admission Poor Weight change and time frame stable Weight Status Appropriate Subjective/Other Information Screen for MST. Pt weight has been stable at this time. PO intake is poor d/t N/V. Educated pt on importance of small bites and sips. Ensure noted at bedside opened. Pt reports continued N/V at this time. Pt is being treated with rx Burn Absent Trauma Absent GI Symptoms Nausea,Vomiting Food Allergy No Current % PO Negligible Minimum of two criteria No Energy Intake (severe) < or equal to 50% Estimated Energy Requirement > or equal to 5 days #2 Nutrition Diagnosis Increased nutrient needs ( specify in comment below) Comments: protein Etiology renal insufficiency As Evidenced by Signs and Symptoms pt on HD #1 Nutrition Diagnosis Inadequate oral intake Etiology nausea As Evidenced by Signs and Symptoms PO itnake <50% x 5 days d/t N/ V Is patient on ventilator? No Is Patient Ambulatory and/or Out of Bed Yes REE-([facility]-ambulatory/OOB) [ 2490.319 [id number]] Calculation Used for Recommendations [facility] Additional Notes protein needs:>103g (>1.2g/ kgBW) fluid needs 1 ml/kcal Nutrition Intervention Change Diet Order: Change diet to renal diet Add Supplement/Snack (indicate name/kcal Nepro QD /protein ) Provides kCal: 425 Provides Protein (gm) 19 Goal #1 Meet at least 75% of EER via PO Anticipated Discharge Needs: Renal Follow-Up By: 10/20/20 Additional Comments F/U intakes and ONS tolerance
[2020-10-18] MEDS ORDERED: NON-FORMULARY EACH (Dolutegravir/Rilpivirine [Juluca 50-25 Mg Tablet] 1 EACH Tablet) PO SCH (15:45)
[2020-10-19 06:20] LABS: Calcium 9.7 mg/dL (8.4-10.2)
--- NOTE | 2020-10-19 09:44 | Progress Note ---
Assessment and Plan This is a 29 year old man who presents with nausea, K 6.5 # ESRD: HD 10/17 for K 6.5, uremic symptoms. Continue HD MWF or prn, HD today - access: AVF- intact with good thrill, bruit - daily labs - renally dose meds - avoid nephrotoxins - renal diet - verbal consent obtained for HD - ok for discharge from renal perspective after HD today # Anemia: last hemoglobin 10.7, no indication for acute ESAs # HTN: UF as tolerated. BP reasonable but remains high, restarted home antihypertensives yesterday # Secondary Hyperparathyroidism: continue home binders as needed # Nausea/Vomiting: management per primary Subjective Date of service: 10/19/20 Interval history: Well this AM, denies any issues Objective - Exam Narrative Exam: Constitutional: no acute distress Head: NC/AT Neck: supple Lungs: clear to auscultation CV: RRR, no M/R/G Abdomen: soft, non-tender, bowel sounds present Back: nontender Extremities: no edema, pulses WNL Skin: intact Neuro: no focal deficits, alert and oriented x4 - Vital Signs Vital signs: Vital Signs - 12hr 10/18/20 10/19/20 10/19/20 23:03 03:37 08:31 Temperature 98.0 F 98.3 F 98.5 F Pulse Rate 98 H 100 H 99 H Respiratory 16 18 20 Rate Blood Pressure 142/83 151/98 162/101 O2 Sat by Pulse 91 93 93 Oximetry - Lab 10/18/20 06:25 10/19/20 05:38 Most recent lab results Calcium 9.7 mg/dL (8.4-10.2) 10/19/20 05:38 Medications & Allergies - Medications Allergies/Adverse Reactions: Allergies No Known Allergies Allergy (Verified 10/08/20 07:57) Home Medications: Home Medications Medication Instructions Recorded Confirmed Last Taken Type Dolutegravir/Rilpivirine [Juluca 1 tab PO DAILY 10/07/20 10/17/20 2 Days Ago History 50-25 mg Tablet] ~10/15/20 NIFEdipine XL [Procardia Xl] 60 mg PO Q12HR #180 tablet 10/09/20 10/17/20 2 Days Ago Rx ~10/15/20 60 mg labetaloL [Labetalol 200mg TAB] 200 mg PO BID #180 10/09/20 10/17/20 2 Days Ago Rx ~10/15/20 200 mg Active Medications: Generic Name Dose Route Start Last Admin Trade Name Juanq PRN Reason Stop Dose Admin Acetaminophen 650 mg 10/17/20 04:22 10/17/20 17:36 Acetaminophen 325 Mg Tab PO 650 mg Q4H PRN Administration Pain MILD(1-3)/Fever >100.5/PATEL Hydralazine HCl 10 mg 10/17/20 04:46 10/18/20 13:48 Hydralazine 20 Mg/1 Ml Inj IV 10 mg Q4H PRN Administration Blood Pressure Sodium Chloride 100 mls @ 999 mls/hr 10/17/20 10:30 Nacl 0.9% IV CITLALI PRN Hypotension Labetalol HCl 200 mg 10/18/20 13:00 10/18/20 21:38 Labetalol 200 Mg Tab PO 200 mg BID DAMIEN Administration Magnesium Hydroxide 30 ml 10/17/20 04:22 Magnesium Hydroxide (Mom) Oral Liqd Udc PO Q4H PRN Constipation Miscellaneous Medication 1 tab 10/18/20 15:45 Dolutegravir/Rilpivirine [Juluca 50-25 Mg Tablet] PO DAILY DAMIEN Morphine Sulfate 2 mg 10/17/20 04:22 10/18/20 11:07 Morphine 2 Mg/1 Ml Inj IV 2 mg Q4H PRN Administration Pain, Moderate (4-6) Morphine Sulfate 4 mg 10/17/20 04:22 Morphine 4 Mg/1 Ml Inj IV Q4H PRN Pain , Severe (7-10) Nifedipine 60 mg 10/18/20 12:00 10/18/20 21:38 Nifedipine Xl 60 Mg Tab PO 60 mg Q12HR DAMIEN Administration Ondansetron HCl 4 mg 10/17/20 04:22 10/18/20 09:39 Ondansetron 4 Mg/2 Ml Inj IV 4 mg Q8H PRN Administration Nausea And Vomiting Sodium Chloride 10 ml 10/17/20 10:00 10/18/20 21:39 Sodium Chloride 0.9% 10 Ml Flush Syringe IV 10 ml BID DAMIEN Administration Sodium Chloride 10 ml 10/17/20 04:22 10/18/20 06:39 Sodium Chloride 0.9% 10 Ml Flush Syringe IV 10 ml PRN PRN Administration LINE FLUSH
[2020-10-19] MEDS: hydrALAZINE 20 MG/1 ML INJ IV PRN (12:15)
[2020-10-19] MEDS: NIFEdipine XL 60 MG TAB PO SCH (15:19)
--- NOTE | 2020-10-19 16:56 | Discharge Summary ---
Providers - Providers Date of Admission: 10/18/20 08:58 Date of discharge: 10/19/20 Attending physician: MICHELLE LEE MD 10/17/20 03:30 Consult to Physician [CONS] Routine Comment: Dr. Billy spoke with Dr. Bruce @ 0332 Consulting Provider: BOBBY BRUCE Physician Instructions: Reason For Exam: Hyperkalemia, ESRD Needing dialysis Primary care physician: WELDER OPERATOR Hospitalization Condition: Good Hospital course: 29-year-old -Guyanese male with end-stage renal disease and hypertensive urgency End-stage renal disease Saturday Nephrology consulted Continue dialysis Hyperkalemia Kayexalate, insulin, glucose, calcium gluconate Continue to monitor potassium, should be resolved with dialysis Chronic HIV infection Continue antivirals Hypertensive urgency Home medications were not restarted, spoke with the nurse to restart the home medications and give in addition to IV hydralazine Acute nausea and vomiting Probably secondary to hypertensive urgency Zofran as needed History Interval history: 10/18/2020: Patient seen and examined, states that he has a headache and he feels nauseated. Blood pressure is elevated, I spoke with the nurse to restart his home medications, apparently they were not restarted. 10/19/2020: Patient seen and examined after dialysis, patient did not have his blood pressure medications before dialysis, patient's blood pressure was elevated, however after giving blood pressure medications, patient's blood pressure was 143 systolics. Patient without any nausea or vomiting, tolerating diet. Advised patient to follow-up with political science instructor this Saturday, he verbally agreed to plan. Disposition: DC- TO HOME OR SELFCARE Final Discharge Diagnosis (Prints w/discharge instructions): Hyperkalemia. End- stage renal disease. Chronic HIV infection. Hypertensive urgency. Acute nausea and vomiting Time spent for discharge: 35 minutes Core Measure Documentation - Palliative Care Palliative Care/ Comfort Measures: Not Applicable - Core Measures Any of the following diagnoses?: none Exam - Physical Exam Narrative exam: General appearance: no acute distress, well-nourished EENT: PERRL, EOM intact, hearing intact, clear oral mucosa Neck: Present: supple, normal ROM Respiratory: bilateral CTA, negative: rales, rhonchi, wheezing Cardiovascular: Regular rate/rhythm, Normal S1 & S2. No gallop, rub Extremities: AV fistula in left arm, no ischemia, No edema, normal temperature, normal color, Full ROM Abdominal: soft, no tenderness, non-distended, normal bowel sounds Integumentary: Present: clear, warm, dry no wounds, no erythema noted Psychiatric: appropriate mood/affect, intact judgment & insight Neurologic: CNII-XII intact, moves all extremities, no sensory or motor abnormalities - Constitutional Vitals: Temp Pulse Resp BP Pulse Ox 98.0 F 99 H 18 179/107 91 10/19/20 15:26 10/19/20 16:00 10/19/20 15:26 10/19/20 15:26 10/19/20 15:26 Plan Activity: no restrictions Diet: low salt, renal Follow up with: PRIMARY CARE, [Primary Care Provider] - 3-5 Days
[2020-10-19 17:16] VITALS: BP 146/84
== END 2020-10-19 18:07 | disposition home or self-care (01) | DRG 304 ==
LOC: ED 01:53 → 4A 03:43 → OBSVTOIN 10-18 08:58
PROVIDERS: ADMIT Internal Medicine Geriatric Medicine; ATTEND Family Medicine
PROC: 5A1D70Z Performance of Urinary Filtration, Intermittent, Less than 6 Hours Per Day (ICD-10-PCS; principal; 2020-10-17)
PROC: 5A1D70Z Performance of Urinary Filtration, Intermittent, Less than 6 Hours Per Day (ICD-10-PCS; 2020-10-19)
DX: I16.0 Hypertensive urgency (principal); N18.6 End stage renal disease; N25.81 Secondary hyperparathyroidism of renal origin; E87.5 Hyperkalemia; D64.9 Anemia, unspecified; I12.0 Hypertensive chronic kidney disease with stage 5 chronic kidney disease or end stage renal disease; Z79.899 Other long term (current) drug therapy; Z21 Asymptomatic human immunodeficiency virus [HIV] infection status
CPT/HCPCS: 36415; 74022; 74176; 80048; 80076; 85025; 85610; 87641; 93005; 96374; 96375; G0378; J0360; J0610; J2270; J2405

== ENCOUNTER 2020-11-13 05:37 | Emergency (ER) | payer MEDICARE ==
[2020-11-13 06:17] VITALS: BP 190/130
--- NOTE | 2020-11-13 06:56 | XRay Report ---
CHEST 1 VIEW INDICATION: SABRINA. COMPARISON: Abdominal series from 10/17/2020 FINDINGS: SUPPORT DEVICES: None. HEART: Stable cardiomegaly. LUNGS/PLEURA: Mild interstitial edema. No effusion. ADDITIONAL FINDINGS: None. IMPRESSION: 1. Stable cardiomegaly with mild edema. Signer Name: Morgan Philip MD Signed: 11/13/2020 6:51 AM Workstation Name: [id number]
[2020-11-13 07:46] LABS: Basophils % (Auto) 0.5 % (0.0-1.8); Eosinophils # (Auto) 0.1 K/mm3 (0.0-0.4); Eosinophils % (Auto) 1.1 % (0.0-4.3); Hematocrit 29.8 % (35.5-45.6); Hemoglobin 9.8 gm/dl (11.8-15.2); Lymphocytes # (Auto) 0.9 K/mm3 (1.2-5.4); Lymphocytes % (Auto) 17.7 % (13.4-35.0); Mean Corpuscular HGB Conc 33 % (32-34); Mean Corpuscular Volume 104 fl (84-94); Monocytes # (Auto) 0.2 K/mm3 (0.0-0.8); Monocytes % (Auto) 4.3 % (0.0-7.3); Platelet Count 139 K/mm3 (140-440); Red Blood Count 2.88 M/mm3 (3.65-5.03); Red Cell Distribution Width 19.2 % (13.2-15.2)
[2020-11-13 07:58] LABS: Calcium 10.1 mg/dL (8.4-10.2)
--- NOTE | 2020-11-13 13:40 | Electrocardiograph Report ---
[facility] Test Date: 2020-11-13 Test Time: 06:25:05 Pat Name: TEOFILO CISNEROS III Department: Room: Gender: M [employer] Time Clerk: GUNJAN : 1990 Requested By: ED DOC Order Number: [id number] Reading MD: Arsen Marte Measurements Intervals [place] Rate: 89 P: 69 [place]: 195 QRS: -26 QRSD: 104 T: 72 QT: 416 QTc: 507 Interpretive Statements Sinus rhythm LAE, consider biatrial enlargement Left axis deviation ST depression, consider lateral ischemia Compared to ECG 10/17/2020 04:35:24 No significant change Electronically Signed On 11-13-2020 13:40:25 EDT by Arsen Marte
== END 2020-11-13 10:06 ==
LOC: ED 05:37
DX: E11.9 Type 2 diabetes mellitus without complications (principal); Z53.21 Procedure and treatment not carried out due to patient leaving prior to being seen by health care provider
CPT/HCPCS: 36415; 71045; 80048; 85025; 93005

== ENCOUNTER 2020-12-25 19:23 | Emergency (ER) | payer MEDICARE ==
[~2020-12-25 19:23] MED LIST: CALCIUM CHLORIDE 1,000 MG/10 ML SYRINGE IV ONE; DEXTROSE 50% IN WATER (25GM) 50 ML SYRINGE IV ONE; DOPamine/D5W 800 MG/250 ML DRIP IV ONE; EPINEPHrine 1 MG/10 ML SYRINGE ONE; NALOXONE 2 MG/2 ML INJ ONE; SODIUM BICARB 8.4% 50 MEQ/50 ML SYRINGE IV ONE
[2020-12-25] MEDS ORDERED: DEXTROSE 50% IN WATER (25GM) 50 ML SYRINGE IV ONE ×2 (20:13→20:36)
[2020-12-25] MEDS ORDERED: CALCIUM CHLORIDE 1,000 MG/10 ML SYRINGE IV ONE (20:19)
--- NOTE | 2020-12-25 21:08 | Emergency Department Report ---
ED CPR HPI - General Chief Complaint: Cardiac Arrest/CPR Stated Complaint: GENERAL NUMBNESS SOB Time Seen by Provider: 12/25/20 20:53 - History of Present Illness Initial Comments: Patient is 29 years old male with history of end-stage renal disease on hemodialysis. Patient brought to the emergency room by his sister for evaluation of not feeling well for the last few days. After patient checked into the emergency room he all of a sudden started having seizure. Patient rushed to the main ED. Patient has an agonal breathing with no pulse. CODE BLUE immediately initiated. ACLS immediately started. Patient intubated by me. CPR started. I immediately obtained left EJ for IV access. Initial rhythm showed asystole and then change to V. fib. Patient received 360J and 300 mg of amiodarone. Patient received Narcan, dextrose, calcium chloride and bicarb. Patient regained his pulse. Patient started on amiodarone drip. Approximately 50 minutes later patient went into acute cardiac arrest again with V. tach. Pat ient was shocked again multiple times and given amiodarone however patient remained in asystole. Patient pronounced at 8:50 PM. For further information please refer to code sheet. Complaint: stopped breathing Initial Findings in the Field: agonal, no pulse, systole - Related Data Home Medications Medication Instructions Recorded Confirmed Last Taken Dolutegravir/Rilpivirine [Juluca 1 tab PO DAILY 10/07/20 10/17/20 2 Days Ago 50-25 mg Tablet] ~10/15/20 Previous Rx's Medication Instructions Recorded Last Taken Type NIFEdipine XL [Procardia Xl] 60 mg PO Q12HR #180 tablet 10/09/20 2 Days Ago Rx ~10/15/20 60 mg labetaloL [Labetalol 200mg TAB] 200 mg PO BID #180 10/09/20 2 Days Ago Rx ~10/15/20 200 mg Allergies Allergy/AdvReac Type Severity Reaction Status Date / Time No Known Allergies Allergy Verified 10/08/20 07:57 ED Review of Systems ROS: Stated complaint: GENERAL NUMBNESS SOB Other details as noted in HPI Comment: Unobtainable due to pts medical conditions ED Past Medical Hx - Past Medical History Hx Hypertension: Yes Hx Congestive Heart Failure: No Hx Diabetes: No Hx Renal Disease: Yes (MWF) Hx Asthma: No Hx COPD: No Hx HIV: Yes - Surgical History Additional Surgical History: R arm fistula - Social History Smoking Status: Never Smoker Substance Use Type: None - Medications Home Medications: Home Medications Medication Instructions Recorded Confirmed Last Taken Type Dolutegravir/Rilpivirine [Juluca 1 tab PO DAILY 10/07/20 10/17/20 2 Days Ago History 50-25 mg Tablet] ~10/15/20 NIFEdipine XL [Procardia Xl] 60 mg PO Q12HR #180 tablet 10/09/20 10/17/20 2 Days Ago Rx ~10/15/20 60 mg labetaloL [Labetalol 200mg TAB] 200 mg PO BID #180 10/09/20 10/17/20 2 Days Ago Rx ~10/15/20 200 mg ED Physical Exam - General General appearance: other (CPR in progress) - Head Head exam: Present: atraumatic (.), normocephalic, normal inspection - Eye Pupils: Present: other (Pupils are 4 mm fixed and nonreactive) - ENT ENT exam: Present: mucous membranes moist - Respiratory Respiratory exam: Present: other (No spontaneous breathing.) - Cardiovascular Cardiovascular Exam: Present: other (No spontaneous heart tone.) - GI/Abdominal GI/Abdominal exam: Present: soft. Absent: distended - Extremities Exam Extremities exam: Present: other (Right forearm fistula.) - Neurological Exam Neurological exam: Present: other (CPR in progress.) - Skin Skin exam: Present: warm, intact, normal color ED Course Vital Signs 12/25/20 21:04 O2 Sat by Pulse 0 L Oximetry - Reevaluation(s) Reevaluation #1: 12/25/20 21:33 Patient mother arrived. She stated that he has history of HIV and end-stage renal disease. She stated that she has not sure if he is compliant with his dialysis but she think that he had dialysis on Saturday. She reported that he has been having significant shortness of breath today. Critical Care Time: Yes Critical care time in (mins) excluding proc time.: 60 Critical care attestation.: If time is entered above; I have spent that time in minutes in the direct care of this critically ill patient, excluding procedure time. ED Disposition Clinical Impression: Cardiopulmonary arrest Disposition: 20 Is pt being admited?: No Condition: Stable
== END 2020-12-26 ==
LOC: ED 19:23
DX: I46.9 Cardiac arrest, cause unspecified (principal); I12.0 Hypertensive chronic kidney disease with stage 5 chronic kidney disease or end stage renal disease
CPT/HCPCS: 31500; 36556; 82962; 92950; 99291; J0171; J1265; J2310; 94002